=== PATIENT | female | born 1950 | race American Indian/Alaskan Native ===

== ENCOUNTER 2018-02-14 11:27 | Outpatient (CLI) | END 2018-02-14 11:28 | disposition home or self-care (01) ==

== ENCOUNTER 2018-03-02 11:29 | Outpatient (CLI) | payer MEDICARE, OTHER ==
[2018-03-02 11:52] LABS: BASOPHILS % (AUTO) 1.1 %; EOSINOPHILS # (AUTO) 0.3 10^3/uL (0.0-0.7); EOSINOPHILS % (AUTO) 7.7 %; HGB - HEMOGLOBIN 13.8 g/dL (12.0-16.0); LYMPHOCYTES # (AUTO) 0.8 10^3/uL (1.5-3.5); LYMPHOCYTES % (AUTO) 21.6 %; MEAN CORPUSCULAR HEMOGLOBIN 30.9 pg (27.0-31.0); MEAN CORPUSCULAR HGB CONC 33.7 g/dL (32.0-36.0); MEAN CORPUSCULAR VOLUME 91.8 fL (81.0-99.0); MEAN PLATELET VOLUME 9.1 fL (7.9-10.8); MONOCYTES # (AUTO) 0.3 10^3/uL (0.0-1.0); MONOCYTES % (AUTO) 8.9 %; NEUTROPHILS # (AUTO) 2.3 10^3/uL (1.5-6.6); NEUTROPHILS % (AUTO) 60.7 %; PLT - PLATELET COUNT 216 10^3/uL (130-450); RED BLOOD COUNT 4.47 10^6/uL (4.20-5.40); RED CELL DISTRIBUTION WIDTH 12.5 % (12.0-15.0); WHITE BLOOD COUNT 3.8 x10^3/uL (4.8-10.8)
[2018-03-02 12:04] LABS: ALBUMIN 3.8 g/dL (3.2-5.5); ALBUMIN/GLOBULIN RATIO 1.1 (1.0-2.2); BILIRUBIN,TOTAL 0.6 mg/dL (0.2-1.0); CALCIUM 9.3 mg/dL (8.5-10.3); CREATININE 0.9 mg/dL (0.4-1.0); TOTAL PROTEIN 7.2 g/dL (6.7-8.2)
== END 2018-03-02 11:30 | disposition home or self-care (01) ==
LOC: LAB 11:29
PROVIDERS: ATTEND Internal Medicine Rheumatology
DX: L40.50 Arthropathic psoriasis, unspecified (principal)
CPT/HCPCS: 36415; 80053; 85025

== ENCOUNTER 2018-03-16 10:07 | Outpatient (CLI) | payer MEDICARE, OTHER ==
[2018-03-16 10:19] LABS: EOSINOPHILS # (AUTO) 0.2 10^3/uL (0.0-0.7); EOSINOPHILS % (AUTO) 6.5 %; LYMPHOCYTES # (AUTO) 0.8 10^3/uL (1.5-3.5); LYMPHOCYTES % (AUTO) 22.2 %; MEAN CORPUSCULAR HEMOGLOBIN 30.9 pg (27.0-31.0); MEAN PLATELET VOLUME 8.9 fL (7.9-10.8); MONOCYTES # (AUTO) 0.4 10^3/uL (0.0-1.0); MONOCYTES % (AUTO) 11.9 %; NEUTROPHILS # (AUTO) 2.1 10^3/uL (1.5-6.6); NEUTROPHILS % (AUTO) 58.4 %; PLT - PLATELET COUNT 219 10^3/uL (130-450); RED BLOOD COUNT 4.52 10^6/uL (4.20-5.40); RED CELL DISTRIBUTION WIDTH 12.5 % (12.0-15.0); WHITE BLOOD COUNT 3.5 x10^3/uL (4.8-10.8)
[2018-03-16 10:43] LABS: ALBUMIN 4.1 g/dL (3.2-5.5); ALBUMIN/GLOBULIN RATIO 1.3 (1.0-2.2); BILIRUBIN,TOTAL 0.7 mg/dL (0.2-1.0); CALCIUM 9.2 mg/dL (8.5-10.3); CREATININE 0.8 mg/dL (0.4-1.0); TOTAL PROTEIN 7.2 g/dL (6.7-8.2)
== END 2018-03-16 10:08 | disposition home or self-care (01) ==
LOC: LAB 10:07
PROVIDERS: ATTEND Internal Medicine Rheumatology
DX: L40.50 Arthropathic psoriasis, unspecified (principal)
CPT/HCPCS: 36415; 80053; 85025

== ENCOUNTER 2018-10-12 08:49 | Outpatient (CLI) | payer MEDICARE, OTHER ==
[2018-10-12 09:29] LABS: HB2 TOTAL 15.1 g/dL; HEMOGLOBIN A1C 0.74 g/dL; HEMOGLOBIN A1C % 6.6 % (4.6-6.2)
[2018-10-12 09:40] LABS: CHOL/HDL RATIO 4.5 (<4.4); CHOLESTEROL 254 mg/dL; HDL CHOLESTEROL 57 mg/dL; LDL CHOLESTEROL,CALCULATED 165 mg/dL; LDL/HDL RATIO 2.9 (<4.4); VLDL CHOLESTEROL 32 mg/dL
[2018-10-12 09:50] LABS: THYROID STIMULATING HORMONE 2.69 uIU/mL (0.34-5.60)
[2018-10-12 09:52] LABS: FREE T4 (FREE THYROXINE) 1.18 ng/dL (0.58-1.64)
== END 2018-10-12 08:50 | disposition home or self-care (01) ==
LOC: LAB 08:49
PROVIDERS: ATTEND Internal Medicine
DX: E11.69 Type 2 diabetes mellitus with other specified complication (principal); E06.3 Autoimmune thyroiditis
CPT/HCPCS: 36415; 80061; 83036; 83721; 84439; 84443; 84481; 86376

== ENCOUNTER 2018-12-16 09:58 | Outpatient (CLI) | payer MEDICARE, OTHER ==
--- NOTE | 2018-12-21 14:06 | DEXA Report ---
Reason: ASYMPTOMATIC MENOPAUSAL STATE Procedure Date: 12/16/2018 Accession Number: [id number] / [id number] Procedure: DEX - Dexa Spine and/or Hip CPT Code: FULL RESULT: EXAM: Dexa Spine and/or Hip, Dexa Forearm DATE: 12/16/2018 10:20 AM CLINICAL HISTORY: POSTMENOPAUSAL STATE, arthritis, Sjogren's syndrome. TECHNIQUE: Dual energy x-ray absorptiometry (DXA) was performed on a [employer]. Regions measured are the AP Spine, femoral neck, and if needed forearm. COMPARISON: 01/13/2010 In accordance with the International Society for Clinical Densitometry (ISCD) guidelines, data from previous exams may be reanalyzed using current recommendations and techniques. This is done to allow a more accurate basis for comparison with the current study. FINDINGS: The data for the lumbar spine is as follows: BMD (g/cm/cm) T-SCORE Z-SCORE REGION L1 1.118 -0.1 0.9 L2 1.282 0.7 1.7 L3 L4 TOTAL 1.201 0.3 1.3 NOTE: All evaluable vertebrae are used for classification The data for the hip is as follows: BMD (g/cm/cm) T-SCORE Z-SCORE REGION Neck 0.880 -1.1 0.0 TOTAL 1.026 0.1 1.0 NOTE: The femoral neck or total proximal femur, whichever is lowest, is used for classification. The data for the left forearm is as follows: BMD (g/cm/cm) T-SCORE Z-SCORE REGION 1/3 0.874 0.0 1.5 NOTE: The 33% radius of the nondominant forearm is used for classification. IMPRESSION: THE WHO CLASSIFICATION BASED ON THE INTERNATIONAL REFERENCE STANDARD IS OSTEOPENIA REFERENCE LEFT FEMORAL NECK). THE FRACTURE RISK IS INCREASED. RECOMMENDATION: Patients with diagnosis of osteoporosis or osteopenia should have regular bone mineral density assessment. For those eligible for Medicare, routine testing is allowed once every 2 years. Testing frequency can be increased for patients who have rapidly progressing disease or for those who are receiving medical therapy to restore bone mass. COMMENT: World Health Organization (WHO) definitions for osteoporosis and osteopenia: NORMAL BMD: T-score at -1.0 or higher, fracture risk is low OSTEOPENIA BMD: T-score between -1.0 and -2.5, fracture risk is increased. OSTEOPOROSIS BMD: T-score at -2.5 or lower, fracture risk is high. National Osteoporosis Foundation recommends: 1. Obtain adequate dietary calcium (at least 1200 mg per day) and vitamin D (400-800 international units per day). 2. Participate, as appropriate, in regular weightbearing and muscle-strengthening exercise. 3. Avoid tobacco use and reduce alcohol and caffeine intake. 4. For more detailed information see the website at www.NOF.org.
--- NOTE | 2018-12-21 14:06 | DEXA Report ---
Reason: ASYMPTOMATIC MENOPAUSAL STATE Procedure Date: 12/16/2018 Accession Number: [id number] / [id number] Procedure: DEX - Dexa Forearm CPT Code: FULL RESULT: EXAM: Dexa Spine and/or Hip, Dexa Forearm DATE: 12/16/2018 10:20 AM CLINICAL HISTORY: POSTMENOPAUSAL STATE, arthritis, Sjogren's syndrome. TECHNIQUE: Dual energy x-ray absorptiometry (DXA) was performed on a [employer] System. Regions measured are the AP Spine, femoral neck, and if needed forearm. COMPARISON: 01/13/2010 In accordance with the International Society for Clinical Densitometry (ISCD) guidelines, data from previous exams may be reanalyzed using current recommendations and techniques. This is done to allow a more accurate basis for comparison with the current study. FINDINGS: The data for the lumbar spine is as follows: BMD (g/cm/cm) T-SCORE Z-SCORE REGION L1 1.118 -0.1 0.9 L2 1.282 0.7 1.7 L3 L4 TOTAL 1.201 0.3 1.3 NOTE: All evaluable vertebrae are used for classification The data for the hip is as follows: BMD (g/cm/cm) T-SCORE Z-SCORE REGION Neck 0.880 -1.1 0.0 TOTAL 1.026 0.1 1.0 NOTE: The femoral neck or total proximal femur, whichever is lowest, is used for classification. The data for the left forearm is as follows: BMD (g/cm/cm) T-SCORE Z-SCORE REGION 1/3 0.874 0.0 1.5 NOTE: The 33% radius of the nondominant forearm is used for classification. IMPRESSION: THE WHO CLASSIFICATION BASED ON THE INTERNATIONAL REFERENCE STANDARD IS OSTEOPENIA REFERENCE LEFT FEMORAL NECK). THE FRACTURE RISK IS INCREASED. RECOMMENDATION: Patients with diagnosis of osteoporosis or osteopenia should have regular bone mineral density assessment. For those eligible for Medicare, routine testing is allowed once every 2 years. Testing frequency can be increased for patients who have rapidly progressing disease or for those who are receiving medical therapy to restore bone mass. COMMENT: World Health Organization (WHO) definitions for osteoporosis and osteopenia: NORMAL BMD: T-score at -1.0 or higher, fracture risk is low OSTEOPENIA BMD: T-score between -1.0 and -2.5, fracture risk is increased. OSTEOPOROSIS BMD: T-score at -2.5 or lower, fracture risk is high. National Osteoporosis Foundation recommends: 1. Obtain adequate dietary calcium (at least 1200 mg per day) and vitamin D (400-800 international units per day). 2. Participate, as appropriate, in regular weightbearing and muscle-strengthening exercise. 3. Avoid tobacco use and reduce alcohol and caffeine intake. 4. For more detailed information see the website at www.NOF.org.
== END 2018-12-16 09:59 | disposition home or self-care (01) ==
LOC: DI 09:58
PROVIDERS: ATTEND Nurse Practitioner Family
DX: M85.88 Other specified disorders of bone density and structure, other site (principal)
CPT/HCPCS: 77080; 77081

== ENCOUNTER 2019-02-01 08:00 | Outpatient (CLI) | payer MEDICARE, OTHER ==
[2019-02-01 14:13] LABS: BASOPHILS % (AUTO) 0.8 %; EOSINOPHILS # (AUTO) 0.3 10^3/uL (0.0-0.7); EOSINOPHILS % (AUTO) 5.6 %; HGB - HEMOGLOBIN 13.4 g/dL (12.0-16.0); LYMPHOCYTES # (AUTO) 1.3 10^3/uL (1.5-3.5); LYMPHOCYTES % (AUTO) 22.8 %; MEAN CORPUSCULAR HEMOGLOBIN 30.6 pg (27.0-31.0); MEAN CORPUSCULAR HGB CONC 33.4 g/dL (32.0-36.0); MEAN CORPUSCULAR VOLUME 91.5 fL (81.0-99.0); MEAN PLATELET VOLUME 9.7 fL (7.9-10.8); MONOCYTES # (AUTO) 0.5 10^3/uL (0.0-1.0); MONOCYTES % (AUTO) 8.3 %; NEUTROPHILS # (AUTO) 3.6 10^3/uL (1.5-6.6); NEUTROPHILS % (AUTO) 62.5 %; PLT - PLATELET COUNT 222 10^3/uL (130-450); RED BLOOD COUNT 4.37 10^6/uL (4.20-5.40); RED CELL DISTRIBUTION WIDTH 13.5 % (12.0-15.0); WHITE BLOOD COUNT 5.7 x10^3/uL (4.8-10.8)
[2019-02-01 14:39] LABS: ALBUMIN 4.1 g/dL (3.2-5.5); ALBUMIN/GLOBULIN RATIO 1.4 (1.0-2.2); BILIRUBIN,TOTAL 0.6 mg/dL (0.2-1.0); CALCIUM 9.2 mg/dL (8.5-10.3); CREATININE 0.8 mg/dL (0.4-1.0)
== END 2019-02-01 23:59 | disposition home or self-care (01) ==
LOC: LAB.WCP 08:00
PROVIDERS: ATTEND Internal Medicine Rheumatology
DX: M35.00 Sjogren syndrome, unspecified (principal)
CPT/HCPCS: 36415; 80053; 85025; 85651

== ENCOUNTER 2019-06-07 08:00 | Outpatient (CLI) | payer MEDICARE, OTHER ==
[2019-06-07 19:10] LABS: BASOPHILS # (AUTO) 0.1 10^3/uL (0.0-0.1); BASOPHILS % (AUTO) 0.9 %; EOSINOPHILS % (AUTO) 36.3 %; LYMPHOCYTES # (AUTO) 1.2 10^3/uL (1.5-3.5); LYMPHOCYTES % (AUTO) 21.9 %; MEAN CORPUSCULAR HGB CONC 31.5 g/dL (32.0-36.0); MEAN CORPUSCULAR VOLUME 98.3 fL (81.0-99.0); MEAN PLATELET VOLUME 11.3 fL (7.9-10.8); MONOCYTES # (AUTO) 0.3 10^3/uL (0.0-1.0); MONOCYTES % (AUTO) 5.7 %; NEUTROPHILS # (AUTO) 1.9 10^3/uL (1.5-6.6); NEUTROPHILS % (AUTO) 34.8 %; PLT - PLATELET COUNT 266 10^3/uL (130-450); WHITE BLOOD COUNT 5.6 x10^3/uL (4.8-10.8)
[2019-06-07 19:32] LABS: HB2 TOTAL 13.9 g/dL; HEMOGLOBIN A1C 0.69 g/dL; HEMOGLOBIN A1C % 6.7 % (4.6-6.2)
[2019-06-07 19:34] LABS: ALBUMIN 3.9 g/dL (3.2-5.5); ALBUMIN/GLOBULIN RATIO 1.4 (1.0-2.2); ALKALINE PHOSPHATASE 55 IU/L (42-121); ALT ALANINE AMINOTRANSFERASE 20 IU/L (10-60); AST ASPARTATE AMINOTRANSFERASE 34 IU/L (10-42); BILIRUBIN,TOTAL 0.7 mg/dL (0.2-1.0); BUN - BLOOD UREA NITROGEN 18 mg/dL (6-20); CALCIUM 9.5 mg/dL (8.5-10.3); CARBON DIOXIDE - CO2 31 mmol/L (21-32); CHLORIDE 101 mmol/L (101-111); CREATININE 0.9 mg/dL (0.4-1.0); GFR - MDRD 62 (>89); GLUCOSE 144 mg/dL (70-100); SODIUM 141 mmol/L (135-145); TOTAL PROTEIN 6.6 g/dL (6.7-8.2)
[2019-06-07 19:35] LABS: CRP - C-REACTIVE PROTEIN < 1.0 mg/dL (0-1.0)
== END 2019-06-07 23:59 | disposition home or self-care (01) ==
LOC: LAB.WCP 08:00
PROVIDERS: ATTEND Internal Medicine Rheumatology
DX: L40.50 Arthropathic psoriasis, unspecified (principal); E11.9 Type 2 diabetes mellitus without complications
CPT/HCPCS: 36415; 80053; 83036; 85025; 85651; 86140

== ENCOUNTER 2019-08-01 11:12 | Outpatient (CLI) | payer MEDICARE, OTHER ==
--- NOTE | 2019-08-02 08:39 | XRAY Report ---
Reason: ARTHROPATHIC PSORIASIS, UNSPECIFIED Procedure Date: 08/01/2019 Accession Number: [id number] / [id number] Procedure: XR - Hand 2 View BILAT CPT Code: Final Report FULL RESULT: EXAM: BILATERAL HAND RADIOGRAPHY EXAM DATE: 08/01/2019 11:51 AM. CLINICAL HISTORY: Arthropathic psoriasis, unspecified. Bilateral hand pain. COMPARISON: None. TECHNIQUE: 2 views each hand. FINDINGS: Bones: Normal. No fractures or bone lesions. Joints: Severe bilateral first carpometacarpal degenerative changes. Severe degenerative changes at the distal medial aspect of the carpus. Severe osteoarthritic changes in the DIP joint of the left fifth finger. Lesser osteoarthritic changes throughout both hands. No gross inflammatory arthropathy seen. No subluxations. Soft Tissues: Normal. No soft tissue swelling. IMPRESSION: 1. No definitive plain film evidence of inflammatory arthropathy. 2. Advanced osteoarthritic changes of the distal radial aspects of the carpi and first carpometacarpal joints bilaterally. 3. Advanced osteoarthritic changes at the DIP joint of the left fifth finger. RADIA
--- NOTE | 2019-08-02 10:45 | XRAY Report ---
Reason: ARTHROPATHIC PSORIASIS, UNSPECIFIED Procedure Date: 08/01/2019 Accession Number: [id number] / [id number] Procedure: XR - Foot 2 View BILAT CPT Code: Final Report FULL RESULT: EXAM: BILATERAL FOOT RADIOGRAPHY EXAM DATE: 08/01/2019 11:51 AM. CLINICAL HISTORY: Arthropathic psoriasis, unspecified. COMPARISON: None. TECHNIQUE: 3 views each foot. FINDINGS: Bones: Normal. No fractures or bone lesions. Joints: No acute malalignment. Moderate bilateral hallux valgus. Mild to moderate right and mild left first MTP joint degenerative changes. No para-articular erosive changes to suggest definitive inflammatory arthropathy. Soft Tissues: Normal. No soft tissue swelling. IMPRESSION: 1. No definitive inflammatory arthropathy in either foot. 2. Bilateral bunion deformities, right worse than left. RADIA
== END 2019-08-01 11:13 | disposition home or self-care (01) ==
LOC: DI 11:12
PROVIDERS: ATTEND Internal Medicine Rheumatology
DX: M19.042 Primary osteoarthritis, left hand (principal); M19.041 Primary osteoarthritis, right hand; M18.0 Bilateral primary osteoarthritis of first carpometacarpal joints; M19.072 Primary osteoarthritis, left ankle and foot; M19.071 Primary osteoarthritis, right ankle and foot; M21.612 Bunion of left foot; M21.611 Bunion of right foot

== ENCOUNTER 2019-10-11 10:36 | Outpatient (CLI) | payer MEDICARE, OTHER ==
[2019-10-11 12:19] LABS: EOSINOPHILS # (AUTO) 0.4 10^3/uL (0.0-0.7); EOSINOPHILS % (AUTO) 10.6 %; HGB - HEMOGLOBIN 13.2 g/dL (12.0-16.0); LYMPHOCYTES # (AUTO) 0.9 10^3/uL (1.5-3.5); LYMPHOCYTES % (AUTO) 22.4 %; MEAN CORPUSCULAR HEMOGLOBIN 31.6 pg (27.0-31.0); MEAN CORPUSCULAR HGB CONC 32.8 g/dL (32.0-36.0); MEAN CORPUSCULAR VOLUME 96.2 fL (81.0-99.0); MEAN PLATELET VOLUME 11.1 fL (7.9-10.8); MONOCYTES # (AUTO) 0.5 10^3/uL (0.0-1.0); NEUTROPHILS # (AUTO) 2.2 10^3/uL (1.5-6.6); NEUTROPHILS % (AUTO) 53.8 %; PLT - PLATELET COUNT 285 10^3/uL (130-450); RED BLOOD COUNT 4.18 10^6/uL (4.20-5.40); RED CELL DISTRIBUTION WIDTH 12.5 % (12.0-15.0); WHITE BLOOD COUNT 4.2 x10^3/uL (4.8-10.8)
[2019-10-11 12:36] LABS: ALBUMIN/GLOBULIN RATIO 1.3 (1.0-2.2); BILIRUBIN,TOTAL 0.6 mg/dL (0.2-1.0); CALCIUM 10.1 mg/dL (8.5-10.3)
== END 2019-10-11 23:59 | disposition home or self-care (01) ==
LOC: LAB.WCP 10:36
PROVIDERS: ATTEND Internal Medicine Rheumatology
DX: L40.50 Arthropathic psoriasis, unspecified (principal); M25.00 Hemarthrosis, unspecified joint
CPT/HCPCS: 36415; 80053; 85025; 85651

== ENCOUNTER 2019-11-07 09:30 | Outpatient (CLI) | payer MEDICARE, OTHER ==
--- NOTE | 2019-11-07 12:32 | Mammography Report ---
Reason: ROUTINE MAMMO Procedure Date: 11/07/2019 Accession Number: [id number] / [id number] Procedure: MESERET - Screening Mammo w/Al CPT Code: Final Report FULL RESULT: EXAM: Screening Mammo w/Al DATE: 11/07/2019 10:47 AM CLINICAL HISTORY: Personal history of left breast cancer status post lumpectomy and radiation therapy. TECHNIQUE: (B) - Bilateral CC and MLO views were obtained. COMPARISON: 10/12/2017, 08/31/2017, 01/26/2017 PARENCHYMAL PATTERN: (A) - The breasts demonstrate scattered fibroglandular densities bilaterally. FINDINGS: Post therapeutic changes left breast are stable. There are no suspicious masses, calcifications, or areas of distortion. IMPRESSION: Benign findings. BI-RADS category 2. RECOMMENDATION: (ANNUAL) - Recommend routine annual screening mammography. BI-RADS CATEGORY: (2) - Benign Findings. STANDARD QUALIFYING STATEMENTS: 1. This examination was not reviewed with the aid of Computer-Aided Detection (CAD). 2. A negative or benign imaging report should not preclude biopsy if clinically suspicious findings are present. 3. Dense breasts may obscure an underlying neoplasm. 4. This examination was reviewed with the aid of 3D breast imaging (tomosynthesis).
== END 2019-11-07 09:31 | disposition home or self-care (01) ==
LOC: DI 09:30
PROVIDERS: ATTEND Internal Medicine
DX: Z12.31 Encounter for screening mammogram for malignant neoplasm of breast (principal); Z85.3 Personal history of malignant neoplasm of breast
CPT/HCPCS: 77063; 77067

== ENCOUNTER 2020-01-04 10:35 | Outpatient (CLI) | payer MEDICARE, OTHER ==
[2020-01-04 11:01] LABS: BASOPHILS # (AUTO) 0.1 10^3/uL (0.0-0.1); EOSINOPHILS # (AUTO) 0.4 10^3/uL (0.0-0.7); EOSINOPHILS % (AUTO) 7.9 %; HGB - HEMOGLOBIN 12.6 g/dL (12.0-16.0); MEAN CORPUSCULAR HEMOGLOBIN 30.7 pg (27.0-31.0); MEAN CORPUSCULAR HGB CONC 32.2 g/dL (32.0-36.0); MEAN CORPUSCULAR VOLUME 95.1 fL (81.0-99.0); MEAN PLATELET VOLUME 10.4 fL (7.9-10.8); MONOCYTES # (AUTO) 0.4 10^3/uL (0.0-1.0); MONOCYTES % (AUTO) 7.1 %; NEUTROPHILS # (AUTO) 3.1 10^3/uL (1.5-6.6); NEUTROPHILS % (AUTO) 62.8 %; PLT - PLATELET COUNT 257 10^3/uL (130-450); RED BLOOD COUNT 4.11 10^6/uL (4.20-5.40); RED CELL DISTRIBUTION WIDTH 13.8 % (12.0-15.0)
[2020-01-04 11:13] LABS: ALBUMIN 4.1 g/dL (3.2-5.5); ALBUMIN/GLOBULIN RATIO 1.5 (1.0-2.2); BILIRUBIN,TOTAL 0.8 mg/dL (0.2-1.0); CALCIUM 9.4 mg/dL (8.5-10.3); CREATININE 0.9 mg/dL (0.4-1.0); TOTAL PROTEIN 6.9 g/dL (6.7-8.2)
== END 2020-01-04 10:36 | disposition home or self-care (01) ==
LOC: LAB 10:35
PROVIDERS: ATTEND Internal Medicine Rheumatology
DX: L40.50 Arthropathic psoriasis, unspecified (principal)
CPT/HCPCS: 36415; 80053; 85025

== ENCOUNTER 2020-02-12 09:11 | Outpatient (CLI) | payer MEDICARE, OTHER ==
[2020-02-12 09:48] LABS: CHOL/HDL RATIO 3.9 (<4.4); CHOLESTEROL 244 mg/dL; HDL CHOLESTEROL 62 mg/dL; LDL CHOLESTEROL,CALCULATED 143 mg/dL; LDL/HDL RATIO 2.3 (<4.4); VLDL CHOLESTEROL 39 mg/dL
[2020-02-12 10:00] LABS: THYROID STIMULATING HORMONE 2.27 uIU/mL (0.34-5.60)
[2020-02-12 10:02] LABS: FREE T4 (FREE THYROXINE) 1.04 ng/dL (0.58-1.64)
[2020-02-12 10:03] LABS: FREE T3 2.88 pg/mL (2.5-3.9)
[2020-02-12 10:17] LABS: HB2 TOTAL 13.8 g/dL; HEMOGLOBIN A1C 0.69 g/dL; HEMOGLOBIN A1C % 6.7 % (4.6-6.2)
[2020-02-12 10:26] LABS: CREATININE,URINE 88.1 mg/dL; MICROALBUM/CREATININE RATIO,UR 2.3 ug/mg (<30.0); MICROALBUMIN,URINE 0.2 mg/dL (0-300.0)
[2020-02-13 13:05] LABS: HEPATITIS C ANTIBODY NON-REACTIVE (NON-REACTIVE)
== END 2020-02-12 09:12 | disposition home or self-care (01) ==
LOC: LAB 09:11
PROVIDERS: ATTEND Internal Medicine
DX: E11.9 Type 2 diabetes mellitus without complications (principal); Z13.6 Encounter for screening for cardiovascular disorders; Z79.899 Other long term (current) drug therapy; I10 Essential (primary) hypertension; H40.9 Unspecified glaucoma; K21.9 Gastro-esophageal reflux disease without esophagitis; K58.9 Irritable bowel syndrome, unspecified; C50.919 Malignant neoplasm of unspecified site of unspecified female breast; L40.9 Psoriasis, unspecified
CPT/HCPCS: 36415; 80061; 82043; 82306; 82570; 82607; 83036; 83721; 84439; 84443; 84481; 86803

== ENCOUNTER 2020-05-24 07:00 | Outpatient (CLI) | payer MEDICARE, OTHER | END 2020-05-24 23:59 | disposition home or self-care (01) | LOC: DI.WCP 07:00 | PROVIDERS: ATTEND Orthopaedic Surgery | DX: M25.552 Pain in left hip (principal) | CPT/HCPCS: 73521 ==

== ENCOUNTER 2020-05-28 08:11 | Outpatient (CLI) | payer MEDICARE, OTHER ==
[2020-05-28 08:58] LABS: THYROID STIMULATING HORMONE 1.86 uIU/mL (0.34-5.60)
--- NOTE | 2020-05-28 09:12 | CT Report ---
PROCEDURE: HEAD WO INDICATIONS: MEMORY LOSS TECHNIQUE: Noncontrast 4.5 mm thick angled axial sections acquired from the foramen magnum to the vertex. For r adiation dose reduction, the following was used: automated exposure control, adjustment of mA and/or kV according to patient size. COMPARISON: 02/11/2015 MRI brain. FINDINGS: Image quality: Excellent. CSF spaces: Mild global cerebral volume loss with opacification of the ventricles and extra axial spa dorys. The ventricular system and basilar cisterns are patent. Brain: Patchy hypoattenuation throughout the subcortical and deep white matter of both cerebral hemis pheres, consistent with chronic ischemic change. This appears to have increased from 2015 exam. Orbit al structures are unremarkable. Skull and face: Calvarium and visualized facial bones are intact, without suspicious lesions. Sinuses: Visualized sinuses and mastoids are clear. IMPRESSION: Mild global cerebral volume loss similar to the prior study. No definite regional or lobar predilecti on to volume loss to suggest a specific neurodegenerative disorder. Mild to moderate chronic vascular ischemic changes which appear grossly increased when compared with January 2015 exam. Reviewed by: Tam Terry MD on 05/28/2020 9:11 AM PDT Approved by: Tam Terry MD on 05/28/2020 9:11 AM PDT Station ID: [id number]
== END 2020-05-28 08:12 | disposition home or self-care (01) ==
LOC: LAB 08:11 → DI 08:12
PROVIDERS: ATTEND Internal Medicine
DX: R41.3 Other amnesia (principal); G64 Other disorders of peripheral nervous system; I67.82 Cerebral ischemia
CPT/HCPCS: 36415; 70450; 82607; 84443; 86780

== ENCOUNTER 2020-07-16 09:33 | Outpatient (CLI) | payer MEDICARE, OTHER | END 2020-07-16 09:34 | disposition home or self-care (01) | LOC: RT 09:33 | PROVIDERS: ATTEND Psychiatry & Neurology Neuromuscular Medicine | DX: Z51.81 Encounter for therapeutic drug level monitoring (principal); Z79.899 Other long term (current) drug therapy | CPT/HCPCS: 93005 ==

== ENCOUNTER 2020-11-05 13:57 | Outpatient (CLI) | payer MEDICARE, OTHER ==
--- NOTE | 2020-11-06 15:07 | Mammography Report ---
BILATERAL DIGITAL SCREENING MAMMOGRAM 3D/2D: 11/05/2020 CLINICAL: Routine screening. Personal history of left breast cancer. Comparison is made to exams dated: 11/07/2019 mammogram, 10/12/2018 mammogram - [facility], and 08/31/2017 mammogram - [facility]. There are scattered fibroglandular elements in both breasts. There is a biopsy clip in the right breast. There also are benign post operative findings in the lef t breast. No significant masses, calcifications, or other findings are seen in either breast. There has been no significant interval change. IMPRESSION: BENIGN There is no mammographic evidence of malignancy. A 1 year screening mammogram is recommended. This exam was interpreted at Station ID: [id number]. NOTE: For mammograms, a report in lay terms will be sent to the patient. Approximately 15% of breast malignancies will not be visualized mammographically. In the management of a palpable breast mass, a negative mammogram must not discourage biopsy of a clinically suspicious lesion. Electronically Signed By: David mo/rola:11/05/2020 15:28:26 ACR BI-RADS Category 2: Benign Finding(s) 3342F PARENCHYMAL PATTERN: (A) - The breast(s) demonstrate(s) scattered fibroglandular densities. BI-RADS CATEGORY: (2) - 2 RECOMMENDATION: (ANNUAL) - Recommend routine annual screening mammography. [id number] 1 year screening LATERALITY: (B)
== END 2020-11-05 13:58 | disposition home or self-care (01) ==
LOC: DI.S 13:57
PROVIDERS: ATTEND Internal Medicine
DX: Z12.31 Encounter for screening mammogram for malignant neoplasm of breast (principal); Z08 Encounter for follow-up examination after completed treatment for malignant neoplasm; Z85.3 Personal history of malignant neoplasm of breast

== ENCOUNTER 2020-12-17 10:19 | Outpatient (CLI) | payer MEDICARE, OTHER ==
--- NOTE | 2020-12-17 16:28 | MRI Report ---
PROCEDURE: Lumbar Spine W/O INDICATIONS: LUMBAR STENOSIS TECHNIQUE: Noncontrast sagittal T1 spin echo and T2 fast echo, sagittal STIR, axial T1 and T2 fast spin echo thr ough the lumbar spine. In cases with scoliosis, additional coronal T2 fast spin echo may be performe d. COMPARISON: None. FINDINGS: Image quality: Partially degraded by metallic artifact. Alignment and Curvature: No plain films are available for comparison. Thus, for numbering purposes, 5 lumbar type vertebral bodies will be presumed for the current report. This should be confirmed with plain film correlation prior to any lumbar spinal intervention. There is mild grade 1 retrolisthesis of L2 on L3. Mild grade 1 anterolisthesis of L3 on L4. Bone Marrow: Marrow is of normal overall signal. No acute vertebral body compression fractures. Po sterior fusion hardware at L4-L5 is present. There is moderate reactive signal within the endplates a djacent to the L3-L4 intervertebral disc. Mild reactive signal within the endplates adjacent to the L 2-L3 and L5-S1 intervertebral discs. Spinal Cord: Conus medullaris terminates at the L1-L2 disc space level. Visualized cord demonstrate s normal signal and size. Paraspinous Soft Tissues: No paravertebral masses. T12-L1: Normal in appearance. L1-L2: Mild disc desiccation and diffuse disc bulge. Mild facet and ligament flavum hypertrophy. M ild epidural lipomatosis. Mild canal stenosis. No foraminal stenosis. L2-L3: Mild disc desiccation and disc height loss. Moderate diffuse disc bulge. Moderate facet and ligament flavum hypertrophy. Mild epidural lipomatosis. Moderate canal stenosis. Moderate left great er than right subarticular foraminal stenosis. L3-L4: Moderate disc height loss and desiccation. Mild diffuse disc bulge with superimposed left fa r lateral protrusion/osteophyte. Moderate facet and ligament flavum hypertrophy. Mild epidural lipoma tosis. Severe canal stenosis. Severe left and moderate right subarticular foraminal stenosis. Left L3 nerve root compression. L4-L5: Status post fusion. Mild bilateral facet hypertrophy. Mild canal stenosis. Mild bilateral fo raminal stenosis. L5-S1: Moderate disc height loss and desiccation. Mild diffuse disc bulge. Moderate bilateral facet hypertrophy. Mild canal stenosis. Moderate to severe right and mild left foraminal stenosis. Possibl e right L5 nerve root compression. Suboptimal visualization secondary to metallic artifact. IMPRESSION: 1. Multilevel degenerative disc and facet disease, in addition to epidural lipomatosis and ligamentum flavum hypertrophy. 2. Postsurgical sequelae at L4-L5. 3. Multilevel canal stenoses, worst at L3-L4, where there is severe canal stenosis. 4. Multilevel foraminal stenoses, worst at L3-L4 on the left where there is associated intraforaminal nerve root compression. 5. Suboptimal evaluation at L5-S1. Possible severe right foraminal stenosis at L5-S1 with associated L5 nerve root compression. 6. Recommend correlation with clinical symptoms to ascertain relevance of these findings. Reviewed by: Sara Guillen MD on 12/17/2020 4:27 PM PDT Approved by: Sara Guillen MD on 12/17/2020 4:27 PM PDT Station ID: [id number]
== END 2020-12-17 10:20 | disposition home or self-care (01) ==
LOC: DI 10:19
PROVIDERS: ATTEND Registered Nurse
DX: M51.36 Other intervertebral disc degeneration, lumbar region (principal); M51.37 Other intervertebral disc degeneration, lumbosacral region; E88.2 Lipomatosis, not elsewhere classified; M48.061 Spinal stenosis, lumbar region without neurogenic claudication; M48.07 Spinal stenosis, lumbosacral region; M47.816 Spondylosis without myelopathy or radiculopathy, lumbar region; M47.817 Spondylosis without myelopathy or radiculopathy, lumbosacral region; Z98.1 Arthrodesis status

== ENCOUNTER 2021-01-14 08:00 | Outpatient (CLI) | payer MEDICARE, OTHER | END 2021-01-14 23:59 | disposition home or self-care (01) | LOC: LAB.R 08:00 | PROVIDERS: ATTEND Internal Medicine Gastroenterology | DX: R19.7 Diarrhea, unspecified (principal) | CPT/HCPCS: 81599; 82705; 83520 ==

== ENCOUNTER 2021-02-10 10:17 | Outpatient (CLI) | payer MEDICARE, OTHER ==
[2021-02-10 10:46] LABS: BASOPHILS # (AUTO) 0.1 10^3/uL (0.0-0.1); BASOPHILS % (AUTO) 1.4 %; EOSINOPHILS # (AUTO) 0.3 10^3/uL (0.0-0.7); EOSINOPHILS % (AUTO) 8.5 %; HCT - HEMATOCRIT 39.9 % (37.0-47.0); HGB - HEMOGLOBIN 13.2 g/dL (12.0-16.0); LYMPHOCYTES % (AUTO) 26.2 %; MEAN CORPUSCULAR HEMOGLOBIN 32.8 pg (27.0-31.0); MEAN CORPUSCULAR HGB CONC 33.1 g/dL (32.0-36.0); MEAN CORPUSCULAR VOLUME 99.3 fL (81.0-99.0); MEAN PLATELET VOLUME 10.7 fL (7.9-10.8); MONOCYTES # (AUTO) 0.3 10^3/uL (0.0-1.0); MONOCYTES % (AUTO) 7.9 %; NEUTROPHILS % (AUTO) 55.7 %; PLT - PLATELET COUNT 202 10^3/uL (130-450); RED BLOOD COUNT 4.02 10^6/uL (4.20-5.40); RED CELL DISTRIBUTION WIDTH 13.2 % (12.0-15.0); WHITE BLOOD COUNT 3.7 x10^3/uL (4.8-10.8)
[2021-02-10 10:54] LABS: ESTIMATED AVERAGE GLUCOSE 140 mg/dL (70-100); HEMOGLOBIN A1c% 6.5 % (4.27-6.07)
[2021-02-10 11:07] LABS: ALBUMIN 4.1 g/dL (3.2-5.5); ALBUMIN/GLOBULIN RATIO 1.6 (1.0-2.2); ALKALINE PHOSPHATASE 42 IU/L (42-121); ALT ALANINE AMINOTRANSFERASE 24 IU/L (10-60); AST ASPARTATE AMINOTRANSFERASE 33 IU/L (10-42); BUN - BLOOD UREA NITROGEN 18 mg/dL (6-20); CALCIUM 9.3 mg/dL (8.5-10.3); CARBON DIOXIDE - CO2 30 mmol/L (21-32); CHLORIDE 95 mmol/L (101-111); CHOL/HDL RATIO 3.8 (<4.4); CHOLESTEROL 237 mg/dL; CREATININE 0.9 mg/dL (0.4-1.0); GFR - MDRD 62 (>89); GLUCOSE 151 mg/dL (70-100); HDL CHOLESTEROL 63 mg/dL; LDL CHOLESTEROL,CALCULATED 154 mg/dL; LDL/HDL RATIO 2.4 (<4.4); POTASSIUM 3.6 mmol/L (3.5-5.0); SODIUM 135 mmol/L (135-145); TOTAL PROTEIN 6.6 g/dL (6.7-8.2); TRIGLYCERIDES 98 mg/dL; VLDL CHOLESTEROL 20 mg/dL
[2021-02-10 11:57] LABS: CREATININE,URINE 143.7 mg/dL; MICROALBUM/CREATININE RATIO,UR 2.1 ug/mg (<30.0); MICROALBUMIN,URINE 0.3 mg/dL (0-300.0)
== END 2021-02-10 10:18 | disposition home or self-care (01) ==
LOC: LAB 10:17
PROVIDERS: ATTEND Internal Medicine
DX: I10 Essential (primary) hypertension (principal); Z13.6 Encounter for screening for cardiovascular disorders; Z79.899 Other long term (current) drug therapy; K21.9 Gastro-esophageal reflux disease without esophagitis; C44.91 Basal cell carcinoma of skin, unspecified; L40.9 Psoriasis, unspecified; C50.919 Malignant neoplasm of unspecified site of unspecified female breast; E11.9 Type 2 diabetes mellitus without complications; L40.50 Arthropathic psoriasis, unspecified; E03.9 Hypothyroidism, unspecified; K58.9 Irritable bowel syndrome, unspecified; J45.909 Unspecified asthma, uncomplicated; H40.9 Unspecified glaucoma
CPT/HCPCS: 36415; 80053; 80061; 82043; 82306; 82570; 83036; 83721; 84443; 85025

== ENCOUNTER 2021-05-21 10:01 | Outpatient (CLI) | payer MEDICARE, OTHER ==
[2021-05-21 11:01] VITALS: BP 162/78
--- NOTE | 2021-05-21 11:01 | SLEEP CARE CONSULTATION ---
Information from patient questionnaire entered by Lilia Calix. I have reviewed and concur with the information entered by Lilia Calix. This document represents the service I personally performed and the decisions made by me, Kayce Ryan ARNP. 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) Chief Complaint: reports: Unrefreshed sleep, Snoring, Observed pauses in breathing, Fatigue, Frequent awakenings at night Date of Onset: many years Usual bedtime: 2300 Time it takes to fall asleep: 5 minutes Snores at night: Yes Observed to quit breathing while asleep: Yes Sleeps alone due to snoring: Yes Number of times waking at night: 4-5 Reasons for waking at night: reports: Snoring, Pain, Bathroom Toss, Turn, or Twitch while sleeping: Yes Recalls having dreams: No Usually gets out of bed at: 0730 Feels refreshed in the morning: No Morning headache: No (has headaches but has chronic sinusitis) Sleepy or fatigued during the day: Yes Ever fallen asleep while driving: No Takes day naps: Yes (sometimes) Dreams during day naps: No Prior sleep studies: Yes Year and Where: [facility] Type of Sleep Study: Polysomnography Additional HPI information: I had the pleasure of seeing AIYANA CALIX today regarding the possibility of her having a sleep disorder. Patient has a previous diagnosis of obstructive sleep apnea with an AHI of 44 but is not currently on a PAP machine. Her current complaints are fatigue, frequent night awakenings, snoring, observed pauses in breathing and unrefreshed sleep. She has not used one for many years. She has been told by her that her rhythmic snoring has become gasping and choking that wakes him up. She has been using a "earpap" device that is showing an increase in her snoring as well. Her will sleep in another room to get sleep. She has other symptoms like daytime fatigue, irritability, lack of motivation, depression, and forgetfulness which could be attributed to ROSSY or her Sjogrens. She states she does not remember dreaming for many months. - Parasomnia Symptoms Ever been unable to move upon waking from sleep: No Walks in sleep: No Talks in sleep: Yes Ever acted out dreams in sleep: No Ever felt weak in the knees when startled or emotional: No Bothered by creepy, crawly, restless sensations in legs: No Problems with memory or concentration: Yes Subjective Initial Ragley Sleepiness Scale score: 6 (in 2020) Past Medical History Past Medical History: reports: Hypertension, Diabetes, Arthritis, Insulin resistance, Hypothyroidism, Fibromyalgia, Asthma, Depression, Other (SJOGRENS, PSORIATIC ARTHRITIS, PERIPHERAL NEUROPATHY) Social History The patient's occupation is a RE. Patient is and lives in [place]. Have you smoked in the past 12 months: No Alcohol use: No Caffeine use: Yes Caffeine amount and frequency: 1 cup, 3x per day Family History Family history of sleep disordered breathing: Yes Family Hx Sleep Apnea: Father: Snoring (daughter), Sleep apnea - Treated (daughter), Sibling: Snoring, Other: Snoring Allergies and Home Medications Drug allergies reviewed: Yes (see list in chart) Home medication list reviewed: Yes Allergy and home medication list: Albuterol sulfate inhaler, prn Aspirin Calcium w/D3 Cevimeline (to be able to swallow) Creon Cyancobalamin Diclofenac sodium Diltiazem Epipen Econazole nitrate Elderberry Flaxseed oil Fluocinonide Fluticasone propinate Folic acid Gabapentin HCTZ Hydroxychloroqine Ketoconazole shampoo Levothyroxine Liothyronine Methotrexate (Rasuvo) multivitamin Potassium chloride Probiotic - hyperbiotics Strontium with K2 Telemisartan Thera tears Triamcinolone Vitamin C, D3 Xiidra Xyzal Review of Systems Cardiovascular: reports: high blood pressure, leg or foot swelling Gastrointestinal: reports: difficulty swallowing Urinary: reports: frequency Neurological: reports: gait or balance problems Psychiatric: reports: depression Ear/Nose/Throat: reports: nasal congestion, sinus problems, dry mouth/throat, hoarseness Endocrine: reports: thyroid disease, sluggishness Musculoskeletal: reports: joint pain, back pain, joint swelling, mobility problems Immunologic: reports: sneezing Physical Exam Blood Pressure: 162/78 (nervous/white coat) Cuff size: wrist Heart Rate: 60 O2 Saturation: 98 Height: 5 ft 3 in Weight: 172 lb Body Mass Index: 30.4 BMI Classification: Obese Heart: regular rate and rhythm Lungs: clear bilaterally Impression and Plan 1. Suspected Obstructive Sleep Apnea-Hypopnea Syndrome, as previously diagnosed and assuggested by a continuing history of loud and irregular snoring, observed cessation of breath while asleep, gasping or choking in sleep, frequent awakening during the night, unrefreshed sleep, cognitive impairment, and excessive daytime sleepiness. I recommend proceeding to polysomnography to confirm the diagnosis and to assess severity. If the patient has significant sleep disordered breathing, a manual CPAP titration study will also be performed to find the optimal treatment pressure. I informed the patient of what the sleep studies involve and after some discussion, obtained agreement to proceed. The pa thophysiology of obstructive sleep apnea-hypopnea syndrome was discussed with the patient and health risks of cardiovascular and cerebrovascular disease if not treated. Risks of drowsy driving discussed in detail and patient advised to avoid long distance driving and to pullboat engineer at the first sign of drowsiness. Patient agreed to plan. * Schedule polysomnography +- manual CPAP titration study and return in 1-2 weeks after the study to discuss result and initiate therapy. * Avoid long distance driving or driving when feeling sleepy. * Avoid alcohol, sedative and muscle relaxant around bedtime. * Attempt to lose weight. * Review instructions provided by trained office staff on how to prepare for the sleep study. * Return for follow-up after sleep study completed. Counseling Topics: Weight loss health impact Visit Type: In Office Time Spent with Patient (minutes): 34 Provider Statement: I spent 100% of the Face to Face Visit with the patient with greater than 50% spent counseling the patient and coordination of care.
== END 2021-05-21 10:02 | disposition home or self-care (01) ==
LOC: SC 10:01
PROVIDERS: ATTEND Nurse Practitioner Family
DX: G47.33 Obstructive sleep apnea (adult) (pediatric) (principal); E66.9 Obesity, unspecified; Z68.30 Body mass index [BMI] 30.0-30.9, adult
CPT/HCPCS: 99203; G0463; 99212

== ENCOUNTER 2021-06-19 19:30 | Outpatient (CLI) | payer MEDICARE, OTHER | END 2021-06-19 19:31 | disposition home or self-care (01) | LOC: SC 19:30 | PROVIDERS: ATTEND Nurse Practitioner Family | DX: G47.33 Obstructive sleep apnea (adult) (pediatric) (principal) | CPT/HCPCS: 95810 ==

== ENCOUNTER 2021-07-02 13:04 | Outpatient (CLI) | payer MEDICARE, OTHER ==
--- NOTE | 2021-07-02 13:47 | SLEEP CARE CONSULTATION ---
Information from patient questionnaire entered by Cheyenne Shetty MA. I have reviewed and concur with the information entered by Cheyenne Shetty MA. This document represents the service I personally performed and the decisions made by , Kayce Ryan ARNP. History of Present Illness Service Date and Time: 07/02/2021 1304 Initial [place] Sleepiness Scale score: 6 (in 2020) Current [place] Sleepiness Scale score: 8 (in 2020) Additional HPI information: AIYANA WATKINS returns with spouse for follow up and results of the recently performed polysomnography. I explained the pathophysiology behind obstructive sleep apnea. We then spent quite a bit of time discussing different treatment options. For mild obstructive sleep apnea, surgery and oral appliance are alternatives to nasal CPAP therapy but in moderate or severe cases, nasal CPAP is the most effective and reliable treatment. Because apnea is primarily in supine position, then positional management therapy could be effective in reducing apnea. Methods discussed such as positioning with pillows and elevating her head to prevent supine sleep. I reviewed the impact of weight changes on sleep apnea and strongly recommended losing weight. I explained how CPAP machine works with sample devices Resp[employer]ics Dreamstation and [employer] [id number]. AAS patient education PAP tips and Non Pap treatment pamphlets reviewed and given to patient. Patient was cautioned about risks of drowsy driving until sleepiness symptoms resolve. Sleep Study - Results Type of Sleep Study: Polysomnography Prior sleep studies: Yes Year and Where: 2003 [facility] Polysomnography/Home Sleep Study results: IMPRESSION: The quality of the study is good. The patient had normal sleep efficiency. Except for mild sleep fragmentation, the sleep architecture was normal as well. Respiratory monitoring showed moderate obstructive sleep apnea- hypopnea (AHI = 19.5) associated with frequent arousals, oxyhemoglobin desaturation and mild hypoxia (ricardo oxygen saturation of 82%). The respirator y events occurred mainly during supine sleep (supine AHI = 47.2; non-supine = 9.91). Snore was light to moderate in intensity. There was no significant periodic leg movement of sleep. Cardiac rhythm was normal sinus rhythm without significant arrhythmia. No abnormal behavior (parasomnia) observed during the night. Allergies and Home Medications Home medication list reviewed: Yes (no changes) Review of Systems Review of systems same as previous: Yes (no changes) Physical Exam Vital signs obtained and entered by: Sena NORRISMA Blood Pressure: 136/70 Heart Rate: 75 O2 Saturation: 97 (with mask) Height: 5 ft 3 in Weight: 171 lb (without boots) Body Mass Index: 30.2 BMI Classification: Obese Impression and Plan 1. Obstructive Sleep Apnea-Hypopnea Syndrome, moderate, with lowest oxygen saturation of 82%. Obviously this is the cause of the patients symptoms of unrefreshed sleep, and excessive daytime sleepiness. Positive pressure therapy could benefit hypertension, diabetes, asthma and depression. Patient's voiced that since she has been elevating her head to sleep she is not snoring near as much as she did in the past. When she last used a CPAP machine about 17 years ago she was constantly getting sinus infections. They do not want to go through that again and ask if there has been improvements with the CPAP. I informed them that CPAP machines have been much improved over the years and that there are other things they can do to ensure that the machine is clean and reduce chance of infections. I also went over with other modalities including positional therapy with an oral device to control her apneas since she is in a mild range when she sleeps nonsupine. I informed her that these oral devices are not always covered well by insurance. I also discussed with them the Inspire implantable therapy device. She does not feel like she could go through another surgery. I gave them some printed information and they will go home to discuss it before making a decision on her therapy. Because the apnea is more severe supine, I instructed to avoid sleeping supine using pillow positioning until able to start therapy. * Patient to call office with choice of therapy * Continue to lose weight. * Avoid supine sleep * The patient is again cautioned about driving until sleepiness completely resolves. * Follow up determined by therapy modality chosen. I will assess response to therapy and compliance at that time. Counseling Topics: Weight loss health impact Visit Type: In Office Other Participants: Spouse/Significant Other Time Spent with Patient (minutes): 23 Provider Statement: I spent 100% of the Face to Face Visit with the patient with greater than 50% spent counseling the patient and coordination of care.
[2021-07-02 13:48] VITALS: BP 136/70
== END 2021-07-02 13:05 | disposition home or self-care (01) ==
LOC: SC 13:04
PROVIDERS: ATTEND Nurse Practitioner Family
DX: G47.33 Obstructive sleep apnea (adult) (pediatric) (principal); E66.9 Obesity, unspecified; Z68.30 Body mass index [BMI] 30.0-30.9, adult
CPT/HCPCS: 99213; G0463; 99212

== ENCOUNTER 2021-09-01 11:00 | Outpatient (CLI) | payer MEDICARE, OTHER ==
--- NOTE | 2021-09-01 12:41 | XRAY Report ---
PROCEDURE: Hip w/Pelvis 2-3V LT INDICATIONS: L HIP PX TECHNIQUE: AP pelvis with lateral view(s) of the left hip(s). COMPARISON: None. FINDINGS: BONES/JOINT: No acute, displaced fracture or dislocation. Mild periarticular osteophytosis. The sacroiliac joints are maintained. No widening of the pubic symphysis. Postsurgical change of the lower lumbar spine. SOFT TISSUES: No focal abnormality. IMPRESSION: 1.No acute osseous abnormality of the hip. Reviewed by: Dav Garza MD on 09/01/2021 12:39 PM [facility] Approved by: Dav Garza MD on 09/01/2021 12:39 PM [facility] Station ID: [id number]
--- NOTE | 2021-09-01 16:58 | XRAY Report ---
PROCEDURE: Lumbar Spine 2 View INDICATIONS: L HIP PX TECHNIQUE: 2 views of the lumbar spine were acquired. COMPARISON: None. FINDINGS: Bones: 5 [id number] vertebrae are present. Postsurgical changes compatible with L4-L5 TLIF. Ort hopedic hardware is in expected position. Orthopedic hardware is intact. No lucencies identified at t he bone-hardware interface. Severe L2-L3, L3-L4, L4-L5 and L5-S1 degenerative disc changes. Grade 1 L 2-L3 degenerative anterolisthesis. Moderate L2-L3, L3-L4, L4-L5 and L5-S1 facet arthropathy. Convex r ight curvature of the lumbar spine. Soft tissues: Overlying bowel gas pattern is normal. No suspicious soft tissue calcifications. IMPRESSION: 1. Status post L4-L5 TLIF. 2. Multilevel degenerative disc disease. 3. Multilevel facet arthropathy. 4. Grade 1 L2-L3 degenerative anterolisthesis. 4. No fracture. No acute osseous lesion. If there is continued clinical concern for pathology, then M RI should be considered for further evaluation. Reviewed by: Eunice Bernardo MD, PhD on 09/01/2021 4:56 PM PST Approved by: Eunice Bernardo MD, PhD on 09/01/2021 4:56 PM PST Station ID: [id number]
== END 2021-09-01 11:01 | disposition home or self-care (01) ==
LOC: DI 11:00
PROVIDERS: ATTEND Internal Medicine
DX: M25.552 Pain in left hip (principal); Z98.1 Arthrodesis status; M43.16 Spondylolisthesis, lumbar region; M51.36 Other intervertebral disc degeneration, lumbar region; M51.37 Other intervertebral disc degeneration, lumbosacral region; M47.816 Spondylosis without myelopathy or radiculopathy, lumbar region; M47.817 Spondylosis without myelopathy or radiculopathy, lumbosacral region

== ENCOUNTER 2021-09-10 07:50 | Outpatient (CLI) | payer MEDICARE, OTHER ==
--- NOTE | 2021-09-10 09:20 | MRI Report ---
PROCEDURE: Hip LT W/O INDICATIONS: LEFT HIP PAIN TECHNIQUE: Noncontrast coronal T1 spin echo and STIR through the bony pelvis. Coronal and axial T2 fast spin ec ho with fat saturation, sagittal T1 spin echo, and oblique axial T2 fast spin echo with fat saturatio n through the hip. COMPARISON: None. FINDINGS: Image quality: Excellent. Bones and joints: Bone marrow of the pelvic ring and proximal femurs show normal signal throughout. No intraosseous lesions or fractures. No avascular necrosis of the femoral heads. The visualized l ower lumbar spine appears normally aligned. Tendons: High-grade tearing of the left gluteus medius tendon at the femoral insertion site. Gluteus minimus tendon is intact. The iliopsoas tendon appears intact, without adjacent bursal fluid collecti ons. The origin of the hamstring tendon demonstrates a small focus of fluid signal intensity at the ischial tuberosity. Labrum and cartilage: Irregularity and high T2 signal intensity within the left hip labrum. Cartilage surface of the femoral head appears of normal thickness. The alpha angle of the femur is within nor mal limits at less than 55 degrees. Soft tissues: Visualized muscles demonstrate normal bulk and internal signal. The proximal sciatic neurovascular bundle appears normal adjacent to the hamstring tendons. No free pelvic fluid. Bladde r wall thickness is normal. Genitourinary structures and bowel loops appear normal where visualized. IMPRESSION: 1. High-grade tearing of the left gluteus medius tendon at the humeral insertion site. 2. Low-grade partial thickness tearing of the left conjoined tendon at the ischial tuberosity. 3. Bilateral hip osteoarthritis. Findings suggestive of degenerative left hip labral tearing. Reviewed by: Sara Guillen MD on 09/10/2021 9:18 AM PST Approved by: Sara Guillen MD on 09/10/2021 9:18 AM PST Station ID: [id number]
== END 2021-09-10 07:51 | disposition home or self-care (01) ==
LOC: DI 07:50
PROVIDERS: ATTEND Internal Medicine
DX: M25.552 Pain in left hip (principal); M16.0 Bilateral primary osteoarthritis of hip; S76.012A Strain of muscle, fascia and tendon of left hip, initial encounter; Z92.241 Personal history of systemic steroid therapy

== ENCOUNTER 2021-10-06 08:00 | Outpatient (CLI) | payer MEDICARE, OTHER ==
[2021-10-06 16:34] LABS: MUDS CUTOFF CONCENTRATIONS CUTOFF CONC BELOW:
[2021-10-06 17:03] LABS: AMPHETAMINE SCREEN,URINE NEGATIVE (NEGATIVE); BARBITURATE SCREEN,UR NEGATIVE (NEGATIVE); BENZODIAZEPINES SCREEN, URINE NEGATIVE (NEGATIVE); COCAINE SCREEN URINE NEGATIVE (NEGATIVE); METHADONE SCREEN, URINE NEGATIVE (NEGATIVE); METHAMPHETAMINES SCREEN, URINE NEGATIVE (NEGATIVE); OPIATE SCREEN, URINE NEGATIVE (NEGATIVE); OXYCODONE SCREEN, URINE NEGATIVE (NEGATIVE); THC CANNABINOID SCREEN, URINE NEGATIVE (NEGATIVE); TRICYCLIC ANTIDEPRESSANT,URINE NEGATIVE (NEGATIVE)
[2021-10-06 17:04] LABS: PROPOXYPHENE SCREEN, URINE NEGATIVE (NEGATIVE)
== END 2021-10-06 23:59 ==
LOC: LAB.R 08:00
PROVIDERS: ATTEND Internal Medicine
DX: G89.29 Other chronic pain (principal)
CPT/HCPCS: 80306

== ENCOUNTER 2021-10-08 12:44 | Outpatient (CLI) | payer MEDICARE, OTHER ==
[2021-10-08 12:59] LABS: BASOPHILS # (AUTO) 0.1 10^3/uL (0.0-0.1); BASOPHILS % (AUTO) 0.9 %; EOSINOPHILS # (AUTO) 0.4 10^3/uL (0.0-0.7); EOSINOPHILS % (AUTO) 6.4 %; HCT - HEMATOCRIT 42.1 % (37.0-47.0); HGB - HEMOGLOBIN 13.9 g/dL (12.0-16.0); LYMPHOCYTES # (AUTO) 1.2 10^3/uL (1.5-3.5); LYMPHOCYTES % (AUTO) 21.6 %; MEAN CORPUSCULAR HEMOGLOBIN 32.4 pg (27.0-31.0); MEAN CORPUSCULAR VOLUME 98.1 fL (81.0-99.0); MEAN PLATELET VOLUME 10.2 fL (7.9-10.8); MONOCYTES # (AUTO) 0.4 10^3/uL (0.0-1.0); MONOCYTES % (AUTO) 6.8 %; NEUTROPHILS # (AUTO) 3.7 10^3/uL (1.5-6.6); PLT - PLATELET COUNT 267 10^3/uL (130-450); RED BLOOD COUNT 4.29 10^6/uL (4.20-5.40); RED CELL DISTRIBUTION WIDTH 13.6 % (12.0-15.0); WHITE BLOOD COUNT 5.7 x10^3/uL (4.8-10.8)
[2021-10-08 13:23] LABS: ALBUMIN 4.4 g/dL (3.2-5.5); ALBUMIN/GLOBULIN RATIO 1.8 (1.0-2.2); BILIRUBIN,TOTAL 0.7 mg/dL (0.2-1.0); CALCIUM 9.5 mg/dL (8.5-10.3); POTASSIUM 3.8 mmol/L (3.5-5.0); TOTAL PROTEIN 6.8 g/dL (6.7-8.2)
== END 2021-10-08 12:45 | disposition home or self-care (01) ==
LOC: LAB 12:44
PROVIDERS: ATTEND Internal Medicine Rheumatology
DX: M35.00 Sjogren syndrome, unspecified (principal); L40.50 Arthropathic psoriasis, unspecified
CPT/HCPCS: 36415; 80053; 85025; 85651

== ENCOUNTER 2021-10-15 09:21 | Outpatient (CLI) | payer MEDICARE, OTHER ==
[2021-10-15 09:56] LABS: CREATININE 0.9 mg/dL (0.4-1.0)
[2021-10-15 10:01] LABS: ALBUMIN 4.4 g/dL (3.2-5.5); BILIRUBIN,DIRECT 0.1 mg/dL (0.1-0.5); BILIRUBIN,TOTAL 0.8 mg/dL (0.2-1.0)
[2021-10-15 10:08] LABS: BILIRUBIN,URINE NEGATIVE (NEGATIVE); GLUCOSE, URINE (UA) NEGATIVE (NEGATIVE); KETONES,URINE (UA) NEGATIVE (NEGATIVE); LEUKOCYTE ESTERASE, URINE NEGATIVE (NEGATIVE); NITRITE,URINE NEGATIVE (NEGATIVE); OCCULT BLOOD,URINE NEGATIVE (NEGATIVE); PH,URINE 6.5 PH (5.0-7.5); PROTEIN,URINE NEGATIVE (NEGATIVE); UROBILINOGEN,URINE 0.2 (NORMAL) E.U./dL (NORMAL)
[2021-10-15 10:35] LABS: BACTERIA,URINE None Seen /HPF (None Seen); CLARITY,URINE CLEAR (CLEAR); RBC,URINE None Seen /HPF (0-5); SQUAMOUS EPITHELIAL CELL,UR NONE SEEN (<= Few); WBC,URINE 0-3 /HPF (0-5)
== END 2021-10-15 09:22 | disposition home or self-care (01) ==
LOC: LAB 09:21
PROVIDERS: ATTEND Nurse Practitioner Family
DX: N28.9 Disorder of kidney and ureter, unspecified (principal); B35.1 Tinea unguium; Z79.899 Other long term (current) drug therapy
CPT/HCPCS: 36415; 80076; 81001; 82565; 84520; 87086

== ENCOUNTER 2021-11-12 13:09 | Outpatient (CLI) | payer MEDICARE, OTHER ==
[2021-11-12 14:13] VITALS: BP 178/89
--- NOTE | 2021-11-12 14:13 | SLEEP CARE CONSULTATION ---
Information from patient questionnaire entered by Cheyenne Shetty MA. I have reviewed and concur with the information entered by Cheyenne Shetty MA. This document represents the service I personally performed and the decisions made by , Kayce Ryan ARNP. History of Present Illness Service Date and Time: 11/12/2021 1309 Previous diagnosis: Moderate, Obstructive Sleep Apnea-Hypopnea Syndrome AHI: 19.5 (in 05/2021) Reason for follow up: first compliance (SET UP 08/29/2021, [employer], ) Accompanied by: Spouse Equipment type: CPAP Equipment obtained from: Other ([facility]) Mask style: Nasal Backup mask available: No Prior sleep studies: Yes Year and Where: 2003 [facility] Type of Sleep Study: Polysomnography HPI additional information: AIYANA WATKINS was diagnosed to have moderate, AHI 19.5, obstructive sleep apnea-hypopnea syndrome and returned today with spouse for CPAP therapy first compliance follow-up. Sleep Study - Results Type of Sleep Study: Polysomnography Prior sleep studies: Yes Year and Where: 2003 [facility] CPAP Compliance Data - Data Reviewed with Patient Average duration of nightly device use: 6 hours Compliance rate %: 100 (last 30 day) Current pressure setting (cmH2O): 4-15 (95% avg 8.0) Humidity settin Average residual AHI: 2.2 Subjective Missed days of use due to: reports: other (POWER OUTAGE) Patient concerns: reports: mask leak noise, dry mouth, nose, throat, other (face swelling under eyes). denies: aerophagia, mask discomfort, air blowing in eyes, condensation in mask/hose, nasal congestion, epistaxis Observed to snore while using device: No Current pressure setting perceived as: comfortable On therapy, patient: reports: other (FACE SWELLING UNDER EYES). denies: drow siness while driving Initial [place] Sleepiness Scale score: 6 (in 2020) Current [place] Sleepiness Scale score: 6 (11/11) Allergies and Home Medications Known drug allergies: Yes Home medication list reviewed: Yes (no changes) Allergy and home medication list: Allergies prochlorperazine [From Compazine] Allergy (Severe, Verified 03/24/16 14:10) Unknown seizure prochlorperazine edisylate * [From Compazine] Allergy (Severe, Verified 03/24/16 14:10) Unknown seizure prochlorperazine maleate * [From Compazine] Allergy (Severe, Verified 03/24/16 14:10) Unknown seizure Sulfa (Sulfonamide Antibiotics) Allergy (Severe, Verified 03/24/16 14:10) Anaphylaxis venom-wasp Allergy (Severe, Verified 03/24/16 14:10) Anaphylaxis ciprofloxacin Allergy (Verified 03/24/16 14:10) Itching duloxetine Allergy (Verified 03/24/16 14:10) Emesis lactose Allergy (Verified 03/24/16 14:10) Cramps spironolactone Allergy (Verified 03/24/16 14:10) Hives etodolac [From Lodine] Adverse Reaction (Verified 03/24/16 14:10) Unknown Review of Systems Review of systems same as previous: No (tore tendon in leg; in PT) Physical Exam Vital signs obtained and entered by: Kate SHETTY CMA AAMA Blood Pressure: 178/89 (PULSE 68, LEFT, RESP 16,) Heart Rate: 70 O2 Saturation: 97 (N95) Height: 5 ft 1 in Weight: 163 lb Body Mass Index: 30.8 BMI Classification: Obese Impression and Plan 1. Obstructive Sleep Apnea-Hypopnea Syndrome, moderate, with good treatment compliance and good apnea control. On CPAP therapy, the patient has been having some mask air leaks when she turns onto her side from sides of mask. She does not yet feel like she is getting better quality sleep or feel more rested but is being persistent about wearing her CPAP mask every night. She only missed a couple nights from power outages but now has a battery backup for her device. The patients pressure will be changed to autoCPAP 8-15 cmH20 to reflect pressure being used. Patient advised to contact me if pressure change is uncomfortable so that it can be adjusted. Goals for apnea control discussed. Mask leaks can be reduced by washing mask daily and changing mask cushions more frequently to improve mask seal and comfort. Additionally, mask leaks predominately from when patient sleeps on their side can be reduced by using a CPAP pillow. Patient was familiar with CPAP pillows and will look into these. She may also try a different size mask if the pillow does not do enough. She did not want to try a nasal mask because she is a mouth breather. I advised using a chin strap if she tries the nasal style masks. She voiced understanding. Patient's apnea severity and rationale for treatment to reduce apnea, improve sleep quality and reduce cardiovascular and cerebrovascular events was reviewed. I also reviewed the benefit of consistent device use of CPAP for hypertension, diabetes, depression and asthma. Patient was encouraged to try to lose weight to improve her overall health and to reduce apneas. * Change auto CPAP pressure to 8-15 cmH2O * Notify me if snoring with mask or feeling that the pressure is too much or too little * Attempt to lose weight * Call this office if any problems using CPAP * Return for follow up in 1-2 months, or sooner if concerns arise Counseling Topics: Spare mask, Weight loss health impact Visit Type: In Office Time Spent with Patient (minutes): 26 Provider Statement: I spent 100% of the Face to Face Visit with the patient with greater than 50% spent counseling the patient and coordination of care.
== END 2021-11-12 13:10 | disposition home or self-care (01) ==
LOC: SC 13:09
PROVIDERS: ATTEND Nurse Practitioner Family
DX: G47.33 Obstructive sleep apnea (adult) (pediatric) (principal); E66.9 Obesity, unspecified; Z68.30 Body mass index [BMI] 30.0-30.9, adult
CPT/HCPCS: 99213; G0463; 99212

== ENCOUNTER 2021-11-19 11:04 | Outpatient (CLI) | payer MEDICARE, OTHER ==
[2021-11-19 11:29] LABS: ALBUMIN 4.4 g/dL (3.2-5.5); BILIRUBIN,DIRECT 0.1 mg/dL (0.1-0.5); BILIRUBIN,TOTAL 0.7 mg/dL (0.2-1.0); TOTAL PROTEIN 7.2 g/dL (6.7-8.2)
== END 2021-11-19 11:05 | disposition home or self-care (01) ==
LOC: LAB 11:04
PROVIDERS: ATTEND Nurse Practitioner Family
DX: B35.1 Tinea unguium (principal); Z79.899 Other long term (current) drug therapy
CPT/HCPCS: 36415; 80076

== ENCOUNTER 2021-12-05 13:44 | Outpatient (CLI) | payer MEDICARE, OTHER ==
--- NOTE | 2021-12-05 14:45 | XRAY Report ---
PROCEDURE: Hip 2 View RT INDICATIONS: HIP PAIN TECHNIQUE: AP view of the pelvis and crosstable lateral view of the right hip were acquired. COMPARISON: September 01, 2021 FINDINGS: BONES/JOINT: No acute, displaced fracture or dislocation. The femoral head is seated within the aceta bulum. The sacroiliac joint is patent. Mild joint space loss with periarticular osteophytosis, unchan ged. Post surgical change of the lumbar spine at L4-5 with discectomy. SOFT TISSUES: No focal abnormality. IMPRESSION: 1.No significant interval change. Reviewed by: Dav Garza MD on 12/05/2021 2:44 PM PDT Approved by: Dav Garza MD on 12/05/2021 2:44 PM PDT Station ID: [id number]
== END 2021-12-05 23:59 | disposition home or self-care (01) ==
LOC: DI.WOS 13:44
PROVIDERS: ATTEND Physician Assistant
DX: M25.551 Pain in right hip (principal)

== ENCOUNTER 2021-12-30 11:06 | Outpatient (CLI) | payer MEDICARE, OTHER ==
[2021-12-30 11:33] LABS: ALBUMIN 4.3 g/dL (3.2-5.5); BILIRUBIN,DIRECT 0.1 mg/dL (0.1-0.5); BILIRUBIN,TOTAL 0.6 mg/dL (0.2-1.0); TOTAL PROTEIN 7.3 g/dL (6.7-8.2)
== END 2021-12-30 11:07 | disposition home or self-care (01) ==
LOC: LAB 11:06
PROVIDERS: ATTEND Nurse Practitioner Family
DX: B35.1 Tinea unguium (principal); Z79.899 Other long term (current) drug therapy
CPT/HCPCS: 36415; 80076

== ENCOUNTER 2022-02-24 08:00 | Outpatient (CLI) | payer MEDICARE, OTHER ==
[2022-02-24 16:07] LABS: BASOPHILS # (AUTO) 0.1 10^3/uL (0.0-0.1); EOSINOPHILS # (AUTO) 0.3 10^3/uL (0.0-0.7); EOSINOPHILS % (AUTO) 6.4 %; HCT - HEMATOCRIT 39.5 % (37.0-47.0); HGB - HEMOGLOBIN 13.9 g/dL (12.0-16.0); LYMPHOCYTES # (AUTO) 0.9 10^3/uL (1.5-3.5); LYMPHOCYTES % (AUTO) 18.7 %; MEAN CORPUSCULAR HEMOGLOBIN 35.5 pg (27.0-31.0); MEAN CORPUSCULAR HGB CONC 35.2 g/dL (32.0-36.0); MEAN PLATELET VOLUME 10.7 fL (7.9-10.8); MONOCYTES # (AUTO) 0.3 10^3/uL (0.0-1.0); MONOCYTES % (AUTO) 6.6 %; NEUTROPHILS # (AUTO) 3.4 10^3/uL (1.5-6.6); NEUTROPHILS % (AUTO) 66.9 %; PLT - PLATELET COUNT 283 10^3/uL (130-450); RED BLOOD COUNT 3.91 10^6/uL (4.20-5.40); RED CELL DISTRIBUTION WIDTH 13.6 % (12.0-15.0)
[2022-02-24 16:25] LABS: ALBUMIN 4.2 g/dL (3.2-5.5); ALBUMIN/GLOBULIN RATIO 1.4 (1.0-2.2); ALKALINE PHOSPHATASE 50 IU/L (42-121); ALT ALANINE AMINOTRANSFERASE 33 IU/L (10-60); AST ASPARTATE AMINOTRANSFERASE 51 IU/L (10-42); BILIRUBIN,TOTAL 0.9 mg/dL (0.2-1.0); BUN - BLOOD UREA NITROGEN 16 mg/dL (6-20); CALCIUM 9.9 mg/dL (8.5-10.3); CARBON DIOXIDE - CO2 30 mmol/L (21-32); CHLORIDE 96 mmol/L (101-111); CHOL/HDL RATIO 3.3 (<4.4); CHOLESTEROL 234 mg/dL; CREATININE 0.8 mg/dL (0.4-1.0); GFR - MDRD 71 (>89); GLUCOSE 139 mg/dL (70-100); HDL CHOLESTEROL 71 mg/dL; LDL CHOLESTEROL,CALCULATED 132 mg/dL; LDL/HDL RATIO 1.9 (<4.4); POTASSIUM 3.8 mmol/L (3.5-5.0); SODIUM 137 mmol/L (135-145); TOTAL PROTEIN 7.2 g/dL (6.7-8.2); TRIGLYCERIDES 153 mg/dL; VLDL CHOLESTEROL 31 mg/dL
[2022-02-24 18:58] LABS: CREATININE,URINE 50.8 mg/dL
[2022-02-24 19:00] LABS: MICROALBUMIN,URINE < 0.2 mg/dL (0-300.0)
[2022-02-24 21:03] LABS: ESTIMATED AVERAGE GLUCOSE 146 mg/dL (70-100); HEMOGLOBIN A1c% 6.7 % (4.27-6.07)
== END 2022-02-24 23:59 | disposition home or self-care (01) ==
LOC: LAB.R 08:00
PROVIDERS: ATTEND Internal Medicine
DX: Z00.00 Encounter for general adult medical examination without abnormal findings (principal); E11.9 Type 2 diabetes mellitus without complications; C50.919 Malignant neoplasm of unspecified site of unspecified female breast; M79.7 Fibromyalgia; K21.9 Gastro-esophageal reflux disease without esophagitis; H40.9 Unspecified glaucoma; I10 Essential (primary) hypertension; E87.6 Hypokalemia; E03.9 Hypothyroidism, unspecified; K58.9 Irritable bowel syndrome, unspecified; M54.50 Low back pain, unspecified; G47.33 Obstructive sleep apnea (adult) (pediatric); M19.90 Unspecified osteoarthritis, unspecified site; M25.562 Pain in left knee; L40.9 Psoriasis, unspecified; L40.50 Arthropathic psoriasis, unspecified; J45.909 Unspecified asthma, uncomplicated; M35.00 Sjogren syndrome, unspecified
CPT/HCPCS: 80053; 80061; 82043; 82306; 82570; 83036; 83721; 84443; 85025

== ENCOUNTER 2022-03-10 08:00 | Outpatient (CLI) | payer MEDICARE, OTHER ==
--- NOTE | 2022-03-10 13:47 | XRAY Report ---
PROCEDURE: Knee 4 View LT INDICATIONS: KNEE PAIN TECHNIQUE: 4 views of the left knee(s) were acquired. COMPARISON: None. FINDINGS: Bones: No fractures or dislocations. No suspicious bony lesions. There is mild to moderate bilateral medial compartment narrowing, left greater than right. Mild left patellofemoral compartment narrowing is present. Small paratracheal or osteophytes are present most n otable in the right lateral compartment as well as patellofemoral. No erosions. Soft tissues: Mild joint effusion. No suspicious soft tissue calcifications. IMPRESSION: Osteoarthritic change most severe medially on the left as above. Reviewed by: Che Corrigan MD on 03/10/2022 1:46 PM PDT Approved by: Che Corrigan MD on 03/10/2022 1:46 PM PDT Station ID: [id number]
== END 2022-03-10 23:59 | disposition home or self-care (01) ==
LOC: DI.WOS 08:00
PROVIDERS: ATTEND Physician Assistant
DX: M17.12 Unilateral primary osteoarthritis, left knee (principal)

== ENCOUNTER 2022-05-24 09:33 | Emergency (ER) | payer MEDICARE, OTHER ==
[2022-05-24 09:45] VITALS: BP 102/88
--- NOTE | 2022-05-24 09:46 | ED Physician Documentation ---
PD HPI FEMALE - Stated complaint Stated Complaint: FEMALE - Chief complaint Chief Complaint: UTI - History obtained from History obtained from: Patient - History of Present Illness Timing - onset: How many days ago (2) Timing - duration: Days (2) Timing - details: Abrupt onset, Still present Associated symptoms: Back pain (chronic in spine. No flank pain.), Dysuria, Urinary frequency. No: Abdominal pain, Vaginal discharge Similar symptoms before: Diagnosis (UTIs remotely.) Recently seen: Not recently seen (has appts upcoming with spine surgeon this coming week.) Review of Systems Constitutional: denies: Fever, Chills GI: denies: Abdominal Pain : reports: Dysuria, Frequency. denies: Hematuria, Discharge Skin: denies: Rash PD PAST MEDICAL HISTORY - Past Medical History Cardiovascular: Hypertension, High cholesterol Respiratory: Asthma Endocrine/Autoimmune: Type 2 diabetes, HyPOthyroidism, Other GI: GERD HEENT: Glaucoma Psych: Depression Musculoskeletal: Osteoarthritis, Fibromyalgia, Osteopenia, Fatigue, Chronic back pain, Other Derm: Psoriasis - Past Surgical History Ortho: Carpal Tunnel surgery, Spine surgery /VISUAL INSPECTOR: Hysterectomy, Mastectomy - Present Medications Home Medications: Ambulatory Orders Medication Instructions Recorded Confirmed Cevimeline HCl [Evoxac] 30 mg PO TID 03/24/16 03/24/16 Cyanocobalamin (Vitamin B-12) 1,000 mcg IM TITR 03/24/16 03/24/16 [Cyanocobalamin Injection] Desonide 15 gm TP DAILY 03/24/16 03/24/16 Diclofenac Sodium 75 mg PO BID 03/24/16 03/24/16 EPINEPHrine [Epipen 2-Jah] 0.3 mg SQ DAILY PRN 03/24/16 03/24/16 Etanercept [Enbrel] 50 mg SQ TITR 03/24/16 03/24/16 Fexofenadine HCl [Jany Allergy] 180 mg PO DAILY 03/24/16 03/24/16 Fluocinonide/Emollient Base 15 gm TP DAILY 03/24/16 03/24/16 [Fluocinonide-E 0.05% Cream] Fluticasone [Flonase] 1 sprays SHAHBAZ DAILY 03/24/16 03/24/16 Hydroxychloroquine [Plaquenil] 200 mg PO BID 03/24/16 03/24/16 Ketoconazole 15 ml TP DAILY PRN 03/24/16 03/24/16 Liothyronine [Cytomel] 5 mcg PO BID 03/24/16 03/24/16 Losartan Potassium 50 mg PO DAILY 03/24/16 03/24/16 Losartan Potassium 100 mg PO DAILY 03/24/16 03/24/16 Potassium Chloride 8 meq PO BID 03/24/16 03/24/16 Pregabalin [Lyrica] 100 mg PO BID 03/24/16 03/24/16 Triamcinolone 0.1% Cream [Kenalog 1 gm TOP BID 03/24/16 03/24/16 0.1% Cream] dilTIAZem HCl [Diltiazem ER] 180 mg PO DAILY 03/24/16 03/24/16 flaxseed oiL [[place]-3 Flaxseed Oil] 1,000 mg PO DAILY 03/24/16 03/24/16 hydroCHLOROthiazide 25 mg PO DAILY 03/24/16 03/24/16 [Hydrochlorothiazide] Fluconazole [Diflucan] 150 mg PO ONCE #1 tablet 05/24/22 Phenazopyridine HCl [Pyridium] 100 mg PO TID PRN #15 tablet 05/24/22 cephALEXin [Keflex] 500 mg PO TID 5 Days #15 cap 05/24/22 - Allergies Allergies/Adverse Reactions: Allergies Allergy/AdvReac Type Severity Reaction Status Date / Time prochlorperazine Allergy Severe Unknown Verified 03/24/16 14:10 [From Compazine] prochlorperazine edisylate * Allergy Severe Unknown Verified 03/24/16 14:10 [From Compazine] prochlorperazine maleate * Allergy Severe Unknown Verified 03/24/16 14:10 [From Compazine] Sulfa (Sulfonamide Allergy Severe Anaphylaxis Verified 03/24/16 14:10 Antibiotics) venom-wasp Allergy Severe Anaphylaxis Verified 03/24/16 14:10 ciprofloxacin Allergy Itching Verified 03/24/16 14:10 duloxetine Allergy Emesis Verified 03/24/16 14:10 lactose Allergy Cramps Verified 03/24/16 14:10 spironolactone Allergy Hives Verified 03/24/16 14:10 etodolac [From Lodine] AdvReac Unknown Verified 03/24/16 14:10 - Social History Smoking Status: Never smoker PD ED PE NORMAL - Vitals Vital signs reviewed: Yes - General General: Alert and oriented X 3, No acute distress, Well developed/nourished - Abdomen Abdomen: Soft, Non tender - Back Back: No CVA TTP - Derm Derm: Normal color, Warm and dry, No rash Results - Vitals Vitals: Vital Signs - 24 hr 05/24/22 09:43 Temperature 37.2 C Heart Rate 75 Respiratory 19 Rate Blood Pressure 102/88 H O2 Saturation 99 Oxygen O2 Source Room air - Labs Labs: Laboratory Tests 05/24/22 09:46 Urine Color LT RED Urine Clarity CLOUDY Urine pH 6.5 Ur Specific [place] 1.020 Urine Protein 30 H Urine Glucose (UA) NEGATIVE Urine Ketones NEGATIVE Urine Occult Blood LARGE H Urine Nitrite NEGATIVE Urine Bilirubin NEGATIVE Urine Urobilinogen 0.2 (NORMAL) Ur Leukocyte Esterase MODERATE H Urine RBC TNTC H Urine WBC >25 H Urine WBC Clumps PRESENT Ur Squamous Epith Cells RARE Squamous Urine Bacteria Moderate H Ur Microscopic Review INDICATED Urine Culture Comments INDICATED PD MEDICAL DECISION MAKING - ED course Complexity details: reviewed results, considered differential, d/w patient Departure - Departure Disposition: 01 Home, Self Care Clinical Impression: Dysuria, Cystitis Condition: Stable Record reviewed to determine appropriate education?: Yes Instructions: ED UTI Cystitis Female Follow-Up: Nicolle Car MD [Primary Care Provider] - Prescriptions: Fluconazole [Diflucan] 150 mg PO ONCE #1 tablet cephALEXin [Keflex] 500 mg PO TID 5 Days #15 cap Phenazopyridine HCl [Pyridium] 100 mg PO TID PRN #15 tablet PRN Reason: Abdominal Pain Comments: Your urine sample does show signs of infection cells as well as blood. Along with your symptoms this would be consistent with bladder infection. We can start treatment with cephalexin 3 times daily for the next 5 days. In addition you can use phenazopyridine 3 times daily to help with urinary discomfort and Tylenol every 4-6 hours if needed for pains. Continue with your other usual medications. I would anticipate improvement over the next 2 to 3 days. Recheck if not improving well in that timeframe and sooner if worse. The urine culture should result in a couple of days and we will call you if we need to modify the antibiotic choice based on that. [facility] [place]. Discharge Date/Time: 05/24/22 10:22
[2022-05-24 10:00] LABS: BILIRUBIN,URINE NEGATIVE (NEGATIVE); GLUCOSE, URINE (UA) NEGATIVE (NEGATIVE); KETONES,URINE (UA) NEGATIVE (NEGATIVE); LEUKOCYTE ESTERASE, URINE MODERATE (NEGATIVE); NITRITE,URINE NEGATIVE (NEGATIVE); OCCULT BLOOD,URINE LARGE (NEGATIVE); PH,URINE 6.5 PH (5.0-7.5); PROTEIN,URINE 30 mg/dL (NEGATIVE); UROBILINOGEN,URINE 0.2 (NORMAL) E.U./dL (NORMAL)
[2022-05-24 10:01] LABS: CLARITY,URINE CLOUDY (CLEAR)
[2022-05-24] MEDS ORDERED: cephALEXin 250 MG CAPSULE PO STA (10:09)
[2022-05-24] MEDS ORDERED: ACETAMINOPHEN 500 MG TABLET PO STA (10:09)
[2022-05-24] MEDS ORDERED: PHENAZOPYRIDINE 100 MG TABLET PO STA (10:09)
--- OUTSIDE RECORDS SUMMARY | 2022-05-24 10:17 | EXTERNAL MEDICAL SUMMARY RPT | Continuity of Care Document ---
:1950 Author Organization [facility] Address [address] [place] [address] Phone Allergies No information. Encounters No information. Functional Status No information. Immunizations No information. Medications No information. Problems No information. Procedures No information. Results/Labs test date author facility value unit interpret ation Result panel 1 (unknown) (no (unknown) (unknown) (no value) (units (unk nown) date) unknown) (unknown) (no (unknown) (unknown) [address] [place] [address] (units (unknown) date) unknown) (unknown) (no (unknown) (unknown) [place] (units ( unknown) date) [id number] unknown) (unknown) (no (unknown) (unknown) [facility] (units (unknown) date) unknown) (unknown) (no (unknown) (unknown) Magnetic (units (unkno wn) date) Resonance Report unknown) (unknown) (no (unknown) (unknown) Signed (units (unkno wn) date) unknown) (unknown) (no (unknown) (unknown) (no value) (units (unk nown) date) unknown) (unknown) (no (unknown) (unknown) 02/26/22 (units (unkno wn) date) unknown) (unknown) (no (unknown) (unknown) 1. Postsurgical (units (unknown) date) changes. unknown) (unknown) (no (unknown) (unknown) 2. Multilevel (units ( unknown) date) degenerative disc unknown) disease. (unknown) (no (unknown) (unknown) 3. Multilevel (units ( unknown) date) facet unknown) arthropathy. (unknown) (no (unknown) (unknown) 4. Severe L2-L3 (units (unknown) date) and L3-L4 central unknown) canal narrowing with slight compression of (unknown) (no (unknown) (unknown) 5. Severe left (units (unknown) date) L2-L3 neural unknown) foraminal narrowing with compression of the exiting (unknown) (no (unknown) (unknown) 6. Large L2-L3 (units (unknown) date) right central unknown) disc extrusion. Extruded disc material causes (unknown) (no (unknown) (unknown) Alignment and (units ( unknown) date) Curvature: There unknown) is approximately 4 millimeters L3-L4 (unknown) (no (unknown) (unknown) Approved by: (units (u nknown) date) Eunice Cowart unknown) MD Tova, PhD on 02/26/2022 at 14:30 (unknown) (no (unknown) (unknown) Bone Marrow: (units (u nknown) date) Postsurgical unknown) changes compatible with L4-L5 TLIF. Fifth Modic (unknown) (no (unknown) (unknown) COMPARISON: (units (un known) date) [facility] unknown) [facility], , MRI L-SPINE W/O CONTRAST, 12/03/2006, (unknown) (no (unknown) (unknown) Dictated by: (units (u nknown) date) Eunice Cowart unknown) MD Tova, PhD on 02/26/2022 at 14:17 (unknown) (no (unknown) (unknown) FINDINGS: (units (unkn own) date) unknown) (unknown) (no (unknown) (unknown) IMPRESSION: (units (un known) date) unknown) (unknown) (no (unknown) (unknown) INDICATIONS: (units (u nknown) date) Radiculopathy, unknown) lumbar region (unknown) (no (unknown) (unknown) Image quality: (units (unknown) date) Excellent. unknown) (unknown) (no (unknown) (unknown) L1-L2: Loss of (units (unknown) date) disc signal. unknown) Mild, diffuse disc bulge. Mild bilateral facet (unknown) (no (unknown) (unknown) L2-L3: Loss of (units (unknown) date) disc signal and unknown) height. Mild, diffuse disc bulge. Large right (unknown) (no (unknown) (unknown) L3-L4: Loss of (units (unknown) date) disc signal and unknown) height. Mild, diffuse disc bulge. Moderate (unknown) (no (unknown) (unknown) L4-L5: Status (units ( unknown) date) post fusion. Mild unknown) bilateral facet hypertrophy. Mild narrowing (unknown) (no (unknown) (unknown) L5-S1: Loss of (units (unknown) date) disc signal and unknown) slight loss of disc height. Mild, diffuse disc (unknown) (no (unknown) (unknown) [id number] (units (unknown) date) bilateral facet unknown) hypertrophy. No central stenosis. Moderate (unknown) (no (unknown) (unknown) Noncontrast (units (un known) date) sagittal T1 spin unknown) echo and T2 fast echo, sagittal STIR, and T2 fast (unknown) (no (unknown) (unknown) Paraspinous Soft (units (unknown) date) Tissues: No unknown) paravertebral masses. (unknown) (no (unknown) (unknown) Severe narrowing (units (unknown) date) of the central unknown) canal with mild compression of the traversing (unknown) (no (unknown) (unknown) Spinal Cord: (units (u nknown) date) Conus medullaris unknown) terminates at the L2 level. Visualized cord (unknown) (no (unknown) (unknown) T12-L1: Slight (units (unknown) date) loss of disc unknown) signal. Mild, diffuse disc bulge. Mild narrowing (unknown) (no (unknown) (unknown) TECHNIQUE: (units (unk nown) date) unknown) (unknown) (no (unknown) (unknown) There is (units (unkno wn) date) approximately 2 unknown) millimeters of L4-L5 anterolisthesis. (unknown) (no (unknown) (unknown) [facility] (units (unknown) date) [facility], [place] unknown) L SPINE WITHOUT CONTRAST, 11/27/2006, 12:08. (unknown) (no (unknown) (unknown) acute vertebral (units (unknown) date) body compression unknown) fractures. (unknown) (no (unknown) (unknown) central canal (units ( unknown) date) narrowing and unknown) impinges upon the traversing nerve roots of the (unknown) (no (unknown) (unknown) central canal. (units (unknown) date) Mild bilateral unknown) neural foraminal narrowing. No neural (unknown) (no (unknown) (unknown) central canal. (units (unknown) date) No neural unknown) foraminal narrowing. No neural compression. (unknown) (no (unknown) (unknown) disc extrusion. (units (unknown) date) Extruded disc unknown) material extends superiorly along the posterior (unknown) (no (unknown) (unknown) exiting left L3 (units (unknown) date) nerve root. unknown) (unknown) (no (unknown) (unknown) facet (units (unkno wn) date) hypertrophy. unknown) Severe narrowing of the central canal with slight (unknown) (no (unknown) (unknown) hypertrophy. (units (u nknown) date) Mild narrowing of unknown) the central canal. Mild bilateral neural (unknown) (no (unknown) (unknown) marked (units (unkno wn) date) compression of unknown) the exiting left L3 nerve root. (unknown) (no (unknown) (unknown) may be (units (unkno wn) date) performed. unknown) (unknown) (no (unknown) (unknown) mild left neural (units (unknown) date) foraminal unknown) narrowing. No neural compression. (unknown) (no (unknown) (unknown) narrowing. No (units ( unknown) date) neural unknown) compression. (unknown) (no (unknown) (unknown) nerve root. (units (un known) date) Moderate to unknown) severe right and severe left L3-L4 neural foraminal (unknown) (no (unknown) (unknown) neural foraminal (units (unknown) date) narrowing with unknown) slight compression of the exiting right L3 (unknown) (no (unknown) (unknown) normal signal (units ( unknown) date) and size. unknown) (unknown) (no (unknown) (unknown) of the cauda (units (u nknown) date) equina. Moderate unknown) right and severe left neural foraminal narrowing (unknown) (no (unknown) (unknown) reactive (units (unkno wn) date) endplate changes unknown) noted adjacent to the L2-L3, L3-L4, L4-L5 and L5-S1 (unknown) (no (unknown) (unknown) slight (units (unkno wn) date) compression of unknown) the exiting left L2 nerve root. (unknown) (no (unknown) (unknown) the L2 vertebral (units (unknown) date) body to a unknown) pedicular location. Moderate bilateral facet (unknown) (no (unknown) (unknown) through the (units (un known) date) lumbar spine. In unknown) cases with scoliosis, additional coronal T2 fast (unknown) (no (unknown) (unknown) traversing nerve (units (unknown) date) roots of the unknown) cauda equina. (unknown) (no (unknown) (unknown) traversing nerve (units (unknown) date) roots of the unknown) cauda equina. Moderate to severe right and (unknown) (no (unknown) (unknown) with slight (units (un known) date) compression of unknown) the exiting right L3 nerve root and marked (unknown) (no (unknown) (unknown) [id number] (units (unkno wn) date) unknown) (unknown) (no (unknown) (unknown) 14:49. (units (unkno wn) date) unknown) (unknown) (no (unknown) (unknown) Accession (units (unkn own) date) Number: unknown) [id number] (unknown) (no (unknown) (unknown) Age/Sex: 71 / F (units (unknown) date) Date of Service: unknown) (unknown) (no (unknown) (unknown) : 1950 (units (unknown) date) Acct:[id number] unknown) (unknown) (no (unknown) (unknown) Loc: MRI (units (unkno wn) date) unknown) (unknown) (no (unknown) (unknown) Ordering (units (unkno wn) date) Provider: unknown) Nate Lopez L.A.C. (unknown) (no (unknown) (unknown) PROCEDURE: MR (units ( unknown) date) LUMBAR SPINE WO unknown) CON (unknown) (no (unknown) (unknown) Patient: (units (unkno wn) date) Filomena Calix unknown) MR#: [id number] (unknown) (no (unknown) (unknown) Procedure: MR (units ( unknown) date) lumbar spine wo unknown) con (unknown) (no (unknown) (unknown) anterolisthesis. (units (unknown) date) unknown) (unknown) (no (unknown) (unknown) bilateral (units (unkn own) date) unknown) (unknown) (no (unknown) (unknown) bulge. (units (unkno wn) date) unknown) (unknown) (no (unknown) (unknown) cauda equina. (units ( unknown) date) unknown) (unknown) (no (unknown) (unknown) central (units (unkno wn) date) unknown) (unknown) (no (unknown) (unknown) compression (units (un known) date) unknown) (unknown) (no (unknown) (unknown) compression of (units (unknown) date) the unknown) (unknown) (no (unknown) (unknown) demonstrates (units (u nknown) date) unknown) (unknown) (no (unknown) (unknown) discs. No (units (unkn own) date) unknown) (unknown) (no (unknown) (unknown) foraminal (units (unkn own) date) unknown) (unknown) (no (unknown) (unknown) hypertrophy. (units (u nknown) date) unknown) (unknown) (no (unknown) (unknown) left L2 (units (unkno wn) date) unknown) (unknown) (no (unknown) (unknown) margin of (units (unkn own) date) unknown) (unknown) (no (unknown) (unknown) narrowing (units (unkn own) date) unknown) (unknown) (no (unknown) (unknown) nerve root and (units (unknown) date) unknown) (unknown) (no (unknown) (unknown) nerve roots (units (un known) date) unknown) (unknown) (no (unknown) (unknown) of the (units (unkno wn) date) unknown) (unknown) (no (unknown) (unknown) right and (units (unkn own) date) unknown) (unknown) (no (unknown) (unknown) severe (units (unkno wn) date) unknown) (unknown) (no (unknown) (unknown) severe left (units (un known) date) unknown) (unknown) (no (unknown) (unknown) spin echo (units (unkn own) date) unknown) (unknown) (no (unknown) (unknown) the (units (unkno wn) date) unknown) (unknown) (no (unknown) (unknown) type 2 (units (unkno wn) date) unknown) (unknown) (no (unknown) (unknown) with (units (unkno wn) date) unknown) Result panel 2 (unknown) (no (unknown) (unknown) (no value) (units (unk nown) date) unknown) (unknown) (no (unknown) (unknown) [id number] (units (unkno wn) date) unknown) (unknown) (no (unknown) (unknown) 05/11/22 (units (unkno wn) date) unknown) (unknown) (no (unknown) (unknown) [address] [place] [address] (units (unknown) date) unknown) (unknown) (no (unknown) (unknown) 11/27/2006, 12:08. (units (unknown) date) unknown) (unknown) (no (unknown) (unknown) Accession Number: (units (unknown) date) [id number] unknown) (unknown) (no (unknown) (unknown) Age/Sex: 72 / F (units (unknown) date) Date of Service: unknown) (unknown) (no (unknown) (unknown) [place], [place] (units ( unknown) date) [id number] unknown) (unknown) (no (unknown) (unknown) Approved by: (units (u nknown) date) christin Garcia M.D. on 05/11/2022 at 16:20 (unknown) (no (unknown) (unknown) Bones: No acute (units (unknown) date) vertebral body unknown) compression fractures. No suspicious lytic or (unknown) (no (unknown) (unknown) COMPARISON: (units (un known) date) [facility] unknown) [facility], , CT L SPINE WITHOUT CONTRAST, (unknown) (no (unknown) (unknown) CT Scan Report (units (unknown) date) unknown) (unknown) (no (unknown) (unknown) : 1950 (units (unknown) date) Acct:[id number] unknown) (unknown) (no (unknown) (unknown) Dictated by: (units (u nknown) date) jose daniel Garcia) Lb on 05/11/2022 at 16:17 (unknown) (no (unknown) (unknown) Endplate (units (unkno wn) date) irregularity and unknown) sclerosis can be seen. Posteriorly projected endplate (unknown) (no (unknown) (unknown) FINDINGS: (units (unkn own) date) unknown) (unknown) (no (unknown) (unknown) Hospital, MR, MR (units (unknown) date) LUMBAR SPINE WO unknown) CON, 02/26/2022, 11:17. (unknown) (no (unknown) (unknown) IMPRESSION: (units (un known) date) Unremarkable L4-5 unknown) postoperative hardware, without findings of (unknown) (no (unknown) (unknown) INDICATIONS: (units (u nknown) date) Spinal stenosis, unknown) lumbar region with neurogenic claudication (unknown) (no (unknown) (unknown) Image quality: (units (unknown) date) Excellent. unknown) (unknown) (no (unknown) (unknown) [facility] (units (unknown) date) unknown) (unknown) (no (unknown) (unknown) [place] (units (unkno wn) date) unknown) (unknown) (no (unknown) (unknown) L1-L2: Normal. (units (unknown) date) unknown) (unknown) (no (unknown) (unknown) L2-L3: Moderate (units (unknown) date) loss of disc unknown) height is seen. Prominent vacuum disc phenomenon (unknown) (no (unknown) (unknown) L3-L4: At least (units (unknown) date) moderate loss of unknown) disc height is seen. Endplate irregularity (unknown) (no (unknown) (unknown) L4-L5: (units (unkno wn) date) Postoperative unknown) changes are seen at this level, with bilateral pedicle (unknown) (no (unknown) (unknown) L5-S1: At least (units (unknown) date) moderate loss of unknown) disc height is seen. Vacuum disc phenomenon (unknown) (no (unknown) (unknown) Loc: CT (units (unkno wn) date) unknown) (unknown) (no (unknown) (unknown) Mild dextroconvex (units (unknown) date) scoliotic unknown) curvature is seen. Minimal anterolisthesis minimal (unknown) (no (unknown) (unknown) Multiple levels (units (unknown) date) relatively unknown) prominent lumbar spine degenerative change can be (unknown) (no (unknown) (unknown) Noncontrast 3 mm (units (unknown) date) thick sections unknown) acquired from the T12 level to the sacrum. (unknown) (no (unknown) (unknown) Ordering (units (unkno wn) date) Provider: unknown) Derick Munguia MD (unknown) (no (unknown) (unknown) PROCEDURE: CT (units ( unknown) date) LUMBAR SPINE WO unknown) CON (unknown) (no (unknown) (unknown) Patient: (units (unkno wn) date) Filomena Calix unknown) MR#: [id number] (unknown) (no (unknown) (unknown) Procedure: CT (units ( unknown) date) lumbar spine wo unknown) con (unknown) (no (unknown) (unknown) Sagittal and (units (u nknown) date) unknown) (unknown) (no (unknown) (unknown) Signed (units (unkno wn) date) unknown) (unknown) (no (unknown) (unknown) Soft tissues: No (units (unknown) date) retroperitoneal unknown) masses or hematomas. Visualized aorta is (unknown) (no (unknown) (unknown) T12-L1: Normal. (units (unknown) date) unknown) (unknown) (no (unknown) (unknown) TECHNIQUE: (units (unk nown) date) unknown) (unknown) (no (unknown) (unknown) There is at least (units (unknown) date) moderate bilateral unknown) neural foraminal narrowing seen. At least (unknown) (no (unknown) (unknown) [facility] (units (unknown) date) [facility], , MRI unknown) L-SPINE W/O CONTRAST, 12/03/2006, 14:49. (unknown) (no (unknown) (unknown) and (units (unkno wn) date) unknown) (unknown) (no (unknown) (unknown) anterolisthesis (units (unknown) date) is seen at L4-L5 unknown) and L5-S1. (unknown) (no (unknown) (unknown) blastic (units (unkno wn) date) unknown) (unknown) (no (unknown) (unknown) bony lesions. No (units (unknown) date) pars defects. unknown) (unknown) (no (unknown) (unknown) caliber. (units (unkno wn) date) Atherosclerotic unknown) calcification is noted. (unknown) (no (unknown) (unknown) central canal (units ( unknown) date) narrowing is seen. unknown) (unknown) (no (unknown) (unknown) coronal reformats (units (unknown) date) were constructed. unknown) For radiation dose reduction, the (unknown) (no (unknown) (unknown) disc bulge is (units ( unknown) date) seen. There is unknown) moderate to severe bilateral neural foraminal (unknown) (no (unknown) (unknown) elements. There (units (unknown) date) is mild unknown) right-sided and no left-sided neural foraminal (unknown) (no (unknown) (unknown) endplate (units (unkno wn) date) osteophytes are unknown) seen. At least moderate facet hypertrophy is seen at (unknown) (no (unknown) (unknown) failure or (units (unk nown) date) unknown) (unknown) (no (unknown) (unknown) following was (units ( unknown) date) unknown) (unknown) (no (unknown) (unknown) foraminal (units (unkn own) date) narrowing. Mild unknown) central canal narrowing is seen. (unknown) (no (unknown) (unknown) hardware (units (unkno wn) date) loosening are unknown) seen. There has been removal of portions of the (unknown) (no (unknown) (unknown) is seen at (units (unk nown) date) unknown) (unknown) (no (unknown) (unknown) is seen (units (unkno wn) date) unknown) (unknown) (no (unknown) (unknown) level. There is (units (unknown) date) moderate to severe unknown) right-sided and at least moderate left (unknown) (no (unknown) (unknown) loosening. (units (unk nown) date) unknown) (unknown) (no (unknown) (unknown) moderate (units (unkno wn) date) unknown) (unknown) (no (unknown) (unknown) narrowing (units (unkn own) date) unknown) (unknown) (no (unknown) (unknown) narrowing. No (units ( unknown) date) unknown) (unknown) (no (unknown) (unknown) normal in (units (unkn own) date) unknown) (unknown) (no (unknown) (unknown) osteophytes are (units (unknown) date) seen. There is unknown) moderate facet hypertrophy seen, left worse (unknown) (no (unknown) (unknown) posterior (units (unkn own) date) unknown) (unknown) (no (unknown) (unknown) projected (units (unkn own) date) unknown) (unknown) (no (unknown) (unknown) sclerosis can be (units (unknown) date) seen. Vacuum disc unknown) phenomenon is seen at this level. At least (unknown) (no (unknown) (unknown) screws and (units (unk nown) date) unknown) (unknown) (no (unknown) (unknown) seen, right worse (units (unknown) date) than left. unknown) Moderate central canal narrowing is seen. (unknown) (no (unknown) (unknown) seen. (units (unkno wn) date) unknown) (unknown) (no (unknown) (unknown) sided neural (units (u nknown) date) unknown) (unknown) (no (unknown) (unknown) than right. (units (un known) date) unknown) (unknown) (no (unknown) (unknown) this level. (units (un known) date) Endplate unknown) irregularity and sclerosis can be seen. Posteriorly (unknown) (no (unknown) (unknown) this (units (unkno wn) date) unknown) (unknown) (no (unknown) (unknown) used: automated (units (unknown) date) exposure control. unknown) (unknown) (no (unknown) (unknown) vertical fixation (units (unknown) date) rods. A disc unknown) spacer is also seen. No findings of hardware Social History No information. Vital Signs No information.
[2022-05-24 10:25] LABS: BACTERIA,URINE Moderate /HPF (None Seen); RBC,URINE TNTC /HPF (0-5); SQUAMOUS EPITHELIAL CELL,UR RARE Squamous (<= Few); WBC CLUMPS,URINE PRESENT; WBC,URINE >25 /HPF (0-5)
== END 2022-05-24 10:22 | disposition home or self-care (01) ==
LOC: ED 09:33
DX: N30.90 Cystitis, unspecified without hematuria (principal); I10 Essential (primary) hypertension; E11.9 Type 2 diabetes mellitus without complications
CPT/HCPCS: 81001; 87077; 87086; 87181; 99282; 99283; A9270; 81003

== ENCOUNTER 2022-10-19 09:27 | Outpatient (CLI) | payer MEDICARE, OTHER ==
[2022-10-19 09:58] LABS: BASOPHILS % (AUTO) 0.7 %; EOSINOPHILS # (AUTO) 0.1 10^3/uL (0.0-0.7); EOSINOPHILS % (AUTO) 2.4 %; HCT - HEMATOCRIT 41.1 % (37.0-47.0); LYMPHOCYTES # (AUTO) 0.6 10^3/uL (1.5-3.5); LYMPHOCYTES % (AUTO) 15.6 %; MEAN CORPUSCULAR HEMOGLOBIN 29.7 pg (27.0-31.0); MEAN CORPUSCULAR HGB CONC 31.6 g/dL (32.0-36.0); MEAN CORPUSCULAR VOLUME 94.1 fL (81.0-99.0); MEAN PLATELET VOLUME 10.4 fL (7.9-10.8); MONOCYTES # (AUTO) 0.4 10^3/uL (0.0-1.0); MONOCYTES % (AUTO) 8.8 %; NEUTROPHILS # (AUTO) 2.8 10^3/uL (1.5-6.6); NEUTROPHILS % (AUTO) 67.6 %; PLT - PLATELET COUNT 231 10^3/uL (130-450); RED BLOOD COUNT 4.37 10^6/uL (4.20-5.40); RED CELL DISTRIBUTION WIDTH 14.5 % (12.0-15.0); WHITE BLOOD COUNT 4.1 x10^3/uL (4.8-10.8)
--- NOTE | 2022-10-19 13:04 | DEXA Report ---
PROCEDURE: Dexa Spine and/or Hip INDICATIONS: POST MENOPAUSAL TECHNIQUE: Dual energy x-ray absorptiometry (DXA) was performed on a [employer] System. Regions measur ed are the AP Spine, femoral neck, and left forearm due to spinal surgical hardware. COMPARISON: 12/16/2018. FINDINGS: Lumbar Spine: Bone Mineral Density 1.188 g/cm/cm,T score 0.5, there is interval 6.3% increase in total lumbar spin e bone mineral density. Left Femoral Neck: Bone Mineral Density 0.961 g/cm/cm, T score -0.6. Left Hip: Bone Mineral Density 1.114 g/cm/cm,T score 0.8, there is interval 0.6% increase in total left hip alek ne mineral density. Left forearm: Bone Mineral Density 0.864 g/cm/cm, T score -0.1. (T score greater or equal to -1.0: NORMAL) (T score from -1.1 to -2.4: OSTEOPENIA) (T score less than or equal to -2.5 to: OSTEOPOROSIS) Impression: Normal bone mineral density. Patients with diagnosis of osteoporosis or osteopenia should have regular bone mineral density assess ment. For those eligible for Medicare, routine testing is allowed once every 2 years. Testing frequ ency can be increased for patients who have rapidly progressing disease or for those who are receivin g medical therapy to restore bone mass. Reviewed by: Tushar Adams MD on 10/19/2022 1:02 PM PST Approved by: Tushar Adams MD on 10/19/2022 1:02 PM PST Station ID: [id number]
== END 2022-10-19 09:28 | disposition home or self-care (01) ==
LOC: DI 09:27
PROVIDERS: ATTEND Internal Medicine
DX: Z78.0 Asymptomatic menopausal state (principal); Z79.891 Long term (current) use of opiate analgesic
CPT/HCPCS: 36415; 85025

== ENCOUNTER 2022-11-16 13:32 | Outpatient (CLI) | payer MEDICARE, OTHER | END 2022-11-16 13:33 | disposition home or self-care (01) | LOC: LAB 13:32 | PROVIDERS: ATTEND Acupuncturist | DX: F19.20 Other psychoactive substance dependence, uncomplicated (principal); Z79.891 Long term (current) use of opiate analgesic | CPT/HCPCS: 81599 ==

== ENCOUNTER 2022-12-08 10:24 | Outpatient (CLI) | payer MEDICARE, OTHER ==
[2022-12-08 10:37] LABS: EOSINOPHILS # (AUTO) 0.3 10^3/uL (0.0-0.7); EOSINOPHILS % (AUTO) 6.9 %; HGB - HEMOGLOBIN 12.4 g/dL (12.0-16.0); LYMPHOCYTES # (AUTO) 0.6 10^3/uL (1.5-3.5); LYMPHOCYTES % (AUTO) 16.1 %; MEAN CORPUSCULAR HEMOGLOBIN 30.2 pg (27.0-31.0); MEAN CORPUSCULAR HGB CONC 31.8 g/dL (32.0-36.0); MEAN CORPUSCULAR VOLUME 95.1 fL (81.0-99.0); MEAN PLATELET VOLUME 9.9 fL (7.9-10.8); MONOCYTES # (AUTO) 0.3 10^3/uL (0.0-1.0); MONOCYTES % (AUTO) 8.4 %; NEUTROPHILS # (AUTO) 2.6 10^3/uL (1.5-6.6); NEUTROPHILS % (AUTO) 67.3 %; PLT - PLATELET COUNT 237 10^3/uL (130-450); RED CELL DISTRIBUTION WIDTH 14.4 % (12.0-15.0); WHITE BLOOD COUNT 3.9 x10^3/uL (4.8-10.8)
[2022-12-08 10:50] LABS: ALBUMIN/GLOBULIN RATIO 1.4 (1.0-2.2); BILIRUBIN,TOTAL 0.7 mg/dL (0.2-1.0); CALCIUM 9.6 mg/dL (8.5-10.3); CREATININE 0.8 mg/dL (0.4-1.0); POTASSIUM 3.7 mmol/L (3.5-5.0); TOTAL PROTEIN 6.9 g/dL (6.7-8.2)
[2022-12-08 10:54] LABS: BILIRUBIN,URINE NEGATIVE (NEGATIVE); GLUCOSE, URINE (UA) NEGATIVE (NEGATIVE); KETONES,URINE (UA) NEGATIVE (NEGATIVE); LEUKOCYTE ESTERASE, URINE NEGATIVE (NEGATIVE); NITRITE,URINE NEGATIVE (NEGATIVE); OCCULT BLOOD,URINE NEGATIVE (NEGATIVE); PROTEIN,URINE NEGATIVE (NEGATIVE); UROBILINOGEN,URINE 0.2 (NORMAL) E.U./dL (NORMAL)
[2022-12-08 11:08] LABS: BACTERIA,URINE Rare /HPF (None Seen); CLARITY,URINE CLEAR (CLEAR); RBC,URINE None Seen /HPF (0-5); SQUAMOUS EPITHELIAL CELL,UR FEW Squamous (<= Few); WBC,URINE 0-3 /HPF (0-5)
== END 2022-12-08 10:25 | disposition home or self-care (01) ==
LOC: LAB 10:24
PROVIDERS: ATTEND Internal Medicine Rheumatology
DX: M35.00 Sjogren syndrome, unspecified (principal); L40.50 Arthropathic psoriasis, unspecified
CPT/HCPCS: 36415; 80053; 81001; 85025; 85651

== ENCOUNTER 2023-03-31 08:42 | Outpatient (CLI) | payer MEDICARE, OTHER ==
[2023-03-31 08:53] LABS: BASOPHILS # (AUTO) 0.1 10^3/uL (0.0-0.1); EOSINOPHILS # (AUTO) 0.5 10^3/uL (0.0-0.7); EOSINOPHILS % (AUTO) 9.9 %; HCT - HEMATOCRIT 38.1 % (37.0-47.0); LYMPHOCYTES # (AUTO) 0.8 10^3/uL (1.5-3.5); LYMPHOCYTES % (AUTO) 16.2 %; MEAN CORPUSCULAR HEMOGLOBIN 30.6 pg (27.0-31.0); MEAN CORPUSCULAR HGB CONC 31.5 g/dL (32.0-36.0); MEAN CORPUSCULAR VOLUME 97.2 fL (81.0-99.0); MEAN PLATELET VOLUME 9.9 fL (7.9-10.8); MONOCYTES # (AUTO) 0.4 10^3/uL (0.0-1.0); MONOCYTES % (AUTO) 8.5 %; NEUTROPHILS # (AUTO) 3.2 10^3/uL (1.5-6.6); NEUTROPHILS % (AUTO) 64.2 %; PLT - PLATELET COUNT 260 10^3/uL (130-450); RED BLOOD COUNT 3.92 10^6/uL (4.20-5.40); RED CELL DISTRIBUTION WIDTH 13.2 % (12.0-15.0); WHITE BLOOD COUNT 5.1 x10^3/uL (4.8-10.8)
[2023-03-31 09:09] LABS: ALBUMIN 3.9 g/dL (3.2-5.5); ALBUMIN/GLOBULIN RATIO 1.4 (1.0-2.2); BILIRUBIN,TOTAL 0.5 mg/dL (0.2-1.0); CALCIUM 9.8 mg/dL (8.5-10.3); CREATININE 0.9 mg/dL (0.6-1.3); POTASSIUM 4.1 mmol/L (3.5-4.5); TOTAL PROTEIN 6.6 g/dL (6.4-8.9)
== END 2023-03-31 08:43 | disposition home or self-care (01) ==
LOC: LAB 08:42
PROVIDERS: ATTEND Internal Medicine Rheumatology
DX: M35.00 Sjogren syndrome, unspecified (principal); L40.50 Arthropathic psoriasis, unspecified
CPT/HCPCS: 36415; 80053; 85025; 85651

== ENCOUNTER 2023-06-24 09:08 | Outpatient (CLI) | payer MEDICARE, OTHER ==
[2023-06-24 09:24] LABS: BASOPHILS # (AUTO) 0.1 10^3/uL (0.0-0.1); BASOPHILS % (AUTO) 0.7 %; EOSINOPHILS # (AUTO) 0.4 10^3/uL (0.0-0.7); EOSINOPHILS % (AUTO) 6.2 %; HCT - HEMATOCRIT 38.7 % (37.0-47.0); HGB - HEMOGLOBIN 12.4 g/dL (12.0-16.0); LYMPHOCYTES # (AUTO) 1.6 10^3/uL (1.5-3.5); LYMPHOCYTES % (AUTO) 23.2 %; MEAN CORPUSCULAR HEMOGLOBIN 31.2 pg (27.0-31.0); MEAN CORPUSCULAR VOLUME 97.2 fL (81.0-99.0); MEAN PLATELET VOLUME 10.1 fL (7.9-10.8); MONOCYTES # (AUTO) 0.5 10^3/uL (0.0-1.0); MONOCYTES % (AUTO) 7.6 %; NEUTROPHILS # (AUTO) 4.2 10^3/uL (1.5-6.6); NEUTROPHILS % (AUTO) 61.9 %; PLT - PLATELET COUNT 251 10^3/uL (130-450); RED BLOOD COUNT 3.98 10^6/uL (4.20-5.40); RED CELL DISTRIBUTION WIDTH 13.5 % (12.0-15.0); WHITE BLOOD COUNT 6.7 x10^3/uL (4.8-10.8)
[2023-06-24 09:29] LABS: BILIRUBIN,URINE NEGATIVE (NEGATIVE); CLARITY,URINE CLEAR (CLEAR); GLUCOSE, URINE (UA) NEGATIVE (NEGATIVE); KETONES,URINE (UA) NEGATIVE (NEGATIVE); LEUKOCYTE ESTERASE, URINE NEGATIVE (NEGATIVE); NITRITE,URINE NEGATIVE (NEGATIVE); OCCULT BLOOD,URINE NEGATIVE (NEGATIVE); PROTEIN,URINE NEGATIVE (NEGATIVE); UROBILINOGEN,URINE 0.2 (NORMAL) E.U./dL (NORMAL)
[2023-06-24 09:36] LABS: BACTERIA,URINE Moderate /HPF (None Seen); RBC,URINE 0-5 /HPF (0-5); SQUAMOUS EPITHELIAL CELL,UR FEW Squamous (<= Few); WBC,URINE 0-3 /HPF (0-5)
[2023-06-24 10:44] LABS: ALBUMIN 4.1 g/dL (3.2-5.5); ALBUMIN/GLOBULIN RATIO 1.6 (1.0-2.2); BILIRUBIN,TOTAL 0.4 mg/dL (0.2-1.0); CALCIUM 9.6 mg/dL (8.5-10.3); CREATININE 0.7 mg/dL (0.6-1.3); POTASSIUM 3.8 mmol/L (3.5-4.5); TOTAL PROTEIN 6.6 g/dL (6.4-8.9)
[2023-06-25 04:09] LABS: COMPLEMENT C3 111 mg/dL (82-167); COMPLEMENT C4 21 mg/dL (12-38)
== END 2023-06-24 09:09 | disposition home or self-care (01) ==
LOC: LAB 09:08
PROVIDERS: ATTEND Internal Medicine Rheumatology
DX: M35.00 Sjogren syndrome, unspecified (principal); L40.50 Arthropathic psoriasis, unspecified
CPT/HCPCS: 36415; 80053; 81001; 85025; 85651; 86160; 87086

== ENCOUNTER 2023-09-13 08:17 | Outpatient (CLI) | payer MEDICARE, OTHER ==
[2023-09-13 08:42] LABS: BASOPHILS % (AUTO) 0.6 %; EOSINOPHILS # (AUTO) 0.2 10^3/uL (0.0-0.7); EOSINOPHILS % (AUTO) 4.7 %; HCT - HEMATOCRIT 37.8 % (37.0-47.0); HGB - HEMOGLOBIN 11.8 g/dL (12.0-16.0); LYMPHOCYTES # (AUTO) 0.9 10^3/uL (1.5-3.5); MEAN CORPUSCULAR HEMOGLOBIN 29.1 pg (27.0-31.0); MEAN CORPUSCULAR HGB CONC 31.2 g/dL (32.0-36.0); MEAN CORPUSCULAR VOLUME 93.3 fL (81.0-99.0); MEAN PLATELET VOLUME 9.7 fL (7.9-10.8); MONOCYTES # (AUTO) 0.5 10^3/uL (0.0-1.0); MONOCYTES % (AUTO) 8.7 %; NEUTROPHILS # (AUTO) 3.5 10^3/uL (1.5-6.6); NEUTROPHILS % (AUTO) 67.8 %; PLT - PLATELET COUNT 291 10^3/uL (130-450); RED BLOOD COUNT 4.05 10^6/uL (4.20-5.40); RED CELL DISTRIBUTION WIDTH 12.2 % (12.0-15.0); WHITE BLOOD COUNT 5.2 x10^3/uL (4.8-10.8)
[2023-09-13 08:52] LABS: ALBUMIN 3.9 g/dL (3.2-5.5); ALBUMIN/GLOBULIN RATIO 1.4 (1.0-2.2); BILIRUBIN,TOTAL 0.4 mg/dL (0.2-1.0); CALCIUM 9.6 mg/dL (8.5-10.3); CREATININE 0.8 mg/dL (0.6-1.3); POTASSIUM 3.7 mmol/L (3.5-4.5); TOTAL PROTEIN 6.6 g/dL (6.4-8.9)
[2023-09-14 05:12] LABS: COMPLEMENT C3 129 mg/dL (82-167); COMPLEMENT C4 22 mg/dL (12-38)
== END 2023-09-13 08:18 | disposition home or self-care (01) ==
LOC: LAB 08:17
PROVIDERS: ATTEND Physician Assistant Medical
DX: B35.1 Tinea unguium (principal); M35.00 Sjogren syndrome, unspecified; L40.50 Arthropathic psoriasis, unspecified
CPT/HCPCS: 36415; 80053; 82248; 84520; 85025; 85651; 86160

== ENCOUNTER 2023-10-28 12:19 | Outpatient (CLI) | payer MEDICARE, OTHER ==
[2023-10-28 13:09] LABS: ALBUMIN 4.1 g/dL (3.2-5.5); ALKALINE PHOSPHATASE 76 IU/L (42-121); ALT ALANINE AMINOTRANSFERASE 8 IU/L (10-60); AST ASPARTATE AMINOTRANSFERASE 19 IU/L (10-42); BILIRUBIN,DIRECT < 0.10 mg/dL (0.03-0.18); BILIRUBIN,TOTAL 0.4 mg/dL (0.2-1.0); TOTAL PROTEIN 6.8 g/dL (6.4-8.9)
[2023-10-28 13:10] LABS: ALBUMIN 4.1 g/dL (3.2-5.5); CALCIUM 10.1 mg/dL (8.5-10.3); CREATININE 0.9 mg/dL (0.6-1.3); PHOSPHORUS 4.1 mg/dL (2.5-5.0)
== END 2023-10-28 12:20 | disposition home or self-care (01) ==
LOC: LAB 12:19
PROVIDERS: ATTEND Physician Assistant Medical
DX: B35.1 Tinea unguium (principal); E11.9 Type 2 diabetes mellitus without complications; M81.8 Other osteoporosis without current pathological fracture
CPT/HCPCS: 36415; 80069; 80076; 82306; 82565; 84520

== ENCOUNTER 2024-01-12 10:28 | Outpatient (CLI) | payer MEDICARE, OTHER ==
[2024-01-12 10:55] LABS: BASOPHILS # (AUTO) 0.1 10^3/uL (0.0-0.1); BASOPHILS % (AUTO) 1.3 %; EOSINOPHILS # (AUTO) 0.3 10^3/uL (0.0-0.7); EOSINOPHILS % (AUTO) 8.3 %; HCT - HEMATOCRIT 37.2 % (37.0-47.0); LYMPHOCYTES # (AUTO) 1.2 10^3/uL (1.5-3.5); LYMPHOCYTES % (AUTO) 29.1 %; MEAN CORPUSCULAR HEMOGLOBIN 31.4 pg (27.0-31.0); MEAN CORPUSCULAR HGB CONC 32.3 g/dL (32.0-36.0); MEAN CORPUSCULAR VOLUME 97.4 fL (81.0-99.0); MONOCYTES # (AUTO) 0.4 10^3/uL (0.0-1.0); NEUTROPHILS # (AUTO) 2.1 10^3/uL (1.5-6.6); NEUTROPHILS % (AUTO) 52.3 %; PLT - PLATELET COUNT 245 10^3/uL (130-450); RED BLOOD COUNT 3.82 10^6/uL (4.20-5.40)
[2024-01-12 10:58] LABS: BILIRUBIN,URINE NEGATIVE (NEGATIVE); GLUCOSE, URINE (UA) NEGATIVE (NEGATIVE); KETONES,URINE (UA) NEGATIVE (NEGATIVE); LEUKOCYTE ESTERASE, URINE NEGATIVE (NEGATIVE); NITRITE,URINE NEGATIVE (NEGATIVE); OCCULT BLOOD,URINE NEGATIVE (NEGATIVE); PH,URINE 7.5 PH (5.0-7.5); PROTEIN,URINE NEGATIVE (NEGATIVE); UROBILINOGEN,URINE 0.2 (NORMAL) E.U./dL (NORMAL)
[2024-01-12 11:09] LABS: BILIRUBIN,DIRECT < 0.10 mg/dL (0.03-0.18)
[2024-01-12 11:15] LABS: ALBUMIN 4.4 g/dL (3.2-5.5); ALBUMIN/GLOBULIN RATIO 1.5 (1.0-2.2); ALKALINE PHOSPHATASE 64 IU/L (42-121); ALT ALANINE AMINOTRANSFERASE 13 IU/L (10-60); AST ASPARTATE AMINOTRANSFERASE 23 IU/L (10-42); BILIRUBIN,TOTAL 0.5 mg/dL (0.2-1.0); BUN - BLOOD UREA NITROGEN 19 mg/dL (6-20); CARBON DIOXIDE - CO2 34 mmol/L (21-32); CHLORIDE 95 mmol/L (101-111); CRP - C-REACTIVE PROTEIN < 0.5 mg/dL (<0.5); GFR - MDRD 55 (>89); GLUCOSE 91 mg/dL (74-104); POTASSIUM 3.4 mmol/L (3.5-4.5); SODIUM 133 mmol/L (135-145); TOTAL PROTEIN 7.3 g/dL (6.4-8.9)
[2024-01-12 11:15] LABS: CLARITY,URINE CLEAR (CLEAR); RBC,URINE None Seen /HPF (0-5); SQUAMOUS EPITHELIAL CELL,UR NONE SEEN (<= Few); WBC,URINE 0-3 /HPF (0-5)
[2024-01-12 11:16] LABS: BACTERIA,URINE None Seen /HPF (None Seen)
[2024-01-13 04:09] LABS: COMPLEMENT C3 128 mg/dL (82-167); COMPLEMENT C4 23 mg/dL (12-38)
== END 2024-01-12 10:29 | disposition home or self-care (01) ==
LOC: LAB 10:28
PROVIDERS: ATTEND Physician Assistant Medical
DX: M35.00 Sjogren syndrome, unspecified (principal); L40.50 Arthropathic psoriasis, unspecified; B35.1 Tinea unguium
CPT/HCPCS: 36415; 80053; 81001; 82248; 85025; 85651; 86140; 86160

== ENCOUNTER 2024-03-24 09:18 | Outpatient (CLI) | payer MEDICARE, OTHER ==
[2024-03-24 09:51] LABS: ALBUMIN 4.1 g/dL (3.2-5.5); ALKALINE PHOSPHATASE 57 IU/L (42-121); ALT ALANINE AMINOTRANSFERASE 14 IU/L (10-60); AST ASPARTATE AMINOTRANSFERASE 24 IU/L (10-42); BILIRUBIN,DIRECT < 0.10 mg/dL (0.03-0.18); BILIRUBIN,TOTAL 0.4 mg/dL (0.2-1.0); BUN - BLOOD UREA NITROGEN 16 mg/dL (6-20); CREATININE 0.9 mg/dL (0.6-1.3); GFR - MDRD 62 (>89); TOTAL PROTEIN 6.6 g/dL (6.4-8.9)
== END 2024-03-24 09:19 | disposition home or self-care (01) ==
LOC: LAB 09:18
PROVIDERS: ATTEND Physician Assistant Medical
DX: B35.1 Tinea unguium (principal)
CPT/HCPCS: 36415; 80076; 82565; 84520

== ENCOUNTER 2024-05-11 12:25 | Outpatient (CLI) | payer MEDICARE, OTHER ==
[2024-05-11 12:43] LABS: BASOPHILS % (AUTO) 0.9 %; EOSINOPHILS # (AUTO) 0.2 10^3/uL (0.0-0.7); EOSINOPHILS % (AUTO) 4.9 %; HCT - HEMATOCRIT 34.5 % (37.0-47.0); HGB - HEMOGLOBIN 11.6 g/dL (12.0-16.0); LYMPHOCYTES # (AUTO) 1.1 10^3/uL (1.5-3.5); LYMPHOCYTES % (AUTO) 25.2 %; MEAN CORPUSCULAR HEMOGLOBIN 33.6 pg (27.0-31.0); MEAN CORPUSCULAR HGB CONC 33.6 g/dL (32.0-36.0); MEAN PLATELET VOLUME 9.8 fL (7.9-10.8); MONOCYTES # (AUTO) 0.4 10^3/uL (0.0-1.0); MONOCYTES % (AUTO) 8.5 %; NEUTROPHILS # (AUTO) 2.6 10^3/uL (1.5-6.6); PLT - PLATELET COUNT 242 10^3/uL (130-450); RED BLOOD COUNT 3.45 10^6/uL (4.20-5.40); RED CELL DISTRIBUTION WIDTH 12.9 % (12.0-15.0); WHITE BLOOD COUNT 4.3 x10^3/uL (4.8-10.8)
[2024-05-11 12:55] LABS: ALBUMIN 4.1 g/dL (3.2-5.5); CALCIUM 9.6 mg/dL (8.5-10.3); CREATININE 1.3 mg/dL (0.6-1.3); PHOSPHORUS 4.4 mg/dL (2.5-5.0); POTASSIUM 4.2 mmol/L (3.5-4.5)
== END 2024-05-11 12:26 | disposition home or self-care (01) ==
LOC: LAB 12:25
PROVIDERS: ATTEND Student in an Organized Health Care Education/Training Program
DX: M81.0 Age-related osteoporosis without current pathological fracture (principal); L40.50 Arthropathic psoriasis, unspecified; M35.00 Sjogren syndrome, unspecified
CPT/HCPCS: 36415; 80069; 82306; 85025; 85651; 86140